=== PATIENT | male | born 1945 | race Hispanic/Latino ===

== ENCOUNTER 2019-11-07 12:28 | Observation (INO) | payer OTHER ==
--- OUTSIDE RECORDS SUMMARY | 2019-11-07 12:33 | XMS REPORT ---
:1945 [facility] Address [address] Ignacio [address] [place] [id number] Care Team Providers Name Role Phone ALICE MILES Unavailable Unavailable Problems This patient has no known problems. Allergies, Adverse Reactions, Alerts This patient has no known allergies or adverse reactions. Medications This patient has no known medications. Results Test Description Test Time Test Comments Text Results Atomic Results Result Comments PET/CT, GALLIUM 68 2019-10-16 09:55:00 FINAL REPORT SKULL BASE TO EXAMINATION: DOTATATE-PET/CT, 10/12/2019 MID-THIGH 10:51 AM CLINICAL HISTORY: Newly diagnosed pancreatic neuroendocrine tumor with hepatic metastases.INDICATION: PET/CT is obtained for initial treatment evaluation.COMPARISON: Outside CT of the abdomen 08/09/2019 TECHNIQUE:Radiopharmaceutical: Ga-68 DotatateAdministered activity: 5.3] mCiRoute of administration: Intravenously via the right handLocalization time: 60 minutesScan extent: Skull base to the proximal thighsAdditional imaging: NoneCPT Code: 92745 FINDINGS:Head and Neck: There is no mariela activity along the cervical chains. Chest: There are no suspicious pulmonary nodules, and no abnormal Tracer activity is seen in the pulmonary parenchyma. No abnormal mariela activity in the mediastinum. Abdomen and Pelvis: Noncontrast CT images of the liver show innumerable small low-attenuation lesions throughout the hepatic parenchyma. There is associated heterogeneous, nodular tracer activity throughout the liver, with SUV measurements reaching 42.9. The primary mass in the distal pancreas also shows intense tracer activity, with SUV measurements reaching 28.7. A nodular focus of intense tracer activity along the dorsal aspect of the mid pancreatic body appears to lie within the pancreatic parenchyma. No abnormal mariela activity is seen in the retroperitoneum, or along iliac or inguinal chains. Musculoskeletal: Numerous foci of osseous tracer activity are seen throughout the axial and proximal appendicular skeleton, many localizing to focal sclerotic lesions on the CT portion of the study. A 0.6 cm sclerotic focus in the T7 vertebral body, for example, has an SUV of 7.6. There is adjacent sclerosis of the left transverse process of the T7 vertebral body, with an SUV of 8.4. Lesions are seen throughout the spine, as well as in the ribs, iliac bones, and proximal femurs. IMPRESSION: Primary neuroendocrine tumor of the distal pancreas. There is a satellite lesion in the mid pancreatic body, and extensive metastatic disease including hepatic and osseous sites. Signed: Camryn Huddleston MDReport Verified Date/Time: 10/16/2019 09:55:55 UE EXAM 2019-09-05 07:43:00 Surgical Pathology Report Case: [id number] Authorizing Provider: Alice Miles Collected: 08/28/2019 1456 Ordering Location: [facility] Endoscopy Received: 08/29/2019 0749 Services Pathologist: Sayda Rodrigues MD Specimens: A) - Polyp, Gastric, gsatric polyp B) - Liver, liver metastasis in formalin, Attn Dr. Stanley C) - Pancreas, Pancreas tail mass in formalin , Attn; Dr. Jaden Vinson. STOMACH, POLYP, POLYPECTOMY- POLYPOID FOVEOLAR HYPERPLASIA WITH FOCAL INTESTINAL METAPLASIA- NEGATIVE FOR HELICOBACTER PYLORI- NEGATIVE FOR DYSPLASIA OR CARCINOMAB. LIVER, EUS-GUIDED BIOPSY OF MASS- METASTATIC WELL DIFFERENTIATED NEUROENDOCRINE TUMOR, GRADE 1 (LOW GRADE) - PROLIFERATION INDEX (ASSESSED BY Ki-67): ~2% C. PANCREAS, TAIL, EUS-GUIDED BIOPSY- NEUROENDOCRINE PROLIFERATION, CONSISTENT WITH WELL DIFFERENTIATED NEUROENDOCRINE TUMOR, GRADE 1 (LOW GRADE) - PROLIFERATION INDEX (ASSESSED BY Ki-67): < 2%- see comment Signing Pathologist Direct Phone Line: [phone] signed by Sayda Rodrigues MD on 09/05/2019 at 7:43 AMPreliminary result electronically signed by Sayda Rodrigues MD on 09/03/2019 at 3:59 PMSpecimen C: With regards to pancreatic tail mass, the biopsy contains very small amount of neuroendocrine cells and the features are consistent with neuroendocrine tumor in the appropriate clinical and radiological setting.[id number], [id number], 22691 X2, 93314 X2, 91573 X2, 19007 [id number] diagnosis: pancreatic massPostoperative diagnosis: pancreatic mass A. Gastric polyp. B. Liver tissue. C. Pancreas tissue Specimen A. Received in formalin labeled with the patient's name, accession number and "gastric polyp" are two fragments of ziegler-pink tissue measuring 0.1 and 0.3 cm in greatest dimension. The specimen is submitted in toto in cassette A1.Specimen B. Received in formalin labeled with the patient's name, accession number and "liver tissue, liver metastasis in formalin, attention Dr. Stanley" is a single elongated red core biopsy that measures 5.0 cm in length x 0.1 cm in diameter. Additionally received in the container are three fragments of ziegler tissue varying in size from 0.1 to 0.3 cm. The specimen is submitted in toto in cassette B1.Specimen C. Received in formalin labeled with the patient's name, accession number and "pancreas tissue, pancreas tail mass in formalin, attention Dr. Stanley" is a 2.0 x 1.0 x 0.3 cm aggregate of irregular to elongated pieces of red tissue. The specimen is submitted in toto in cassettes C1-C2. JG/Giovani Microscopic examination is performed and the findings are incorporated in the diagnostic line. Warthin starry stain is negative for Helicobacter pylori. B, C. Microscopic examination is performed and the findings are incorporated in the diagnostic line. Immunostains for synaptophysin, chromogranin and Ki-67 were performed on block B1, C1 AND C2 with appropriate controls. The tumor is positive for synaptophysin and chromogranin. The proliferation index as assessed by Ki-67 is ~2%. The interpretation of this case included the use of immunohistochemistry or special stains.Control Slides Examined: In-house known positive controls were evaluated along with the test tissue. These control slides run alongside of the patients sample show appropriate staining. Internal positive and negative controls when available are evaluated Immunohistochemistry technical testing was performed at [facility], Pathology Laboratory where it was developed and its performance characteristics were determined. It has not been cleared or approved by the U.S. Food and Drug Administration. The FDA has determined that such clearance or approval is not necessary. The test is used for clinical purposes. It should not be regarded as investigational or for research. This laboratory is certified under the Clinical Laboratory Improvement Amendments of 1988 (CLIA-88) as qualified to perform high complexity clinical laboratory testing.
[2019-11-07] MEDS ORDERED: ONDANSETRON 4 MG/2 ML VIAL IV PRN (13:00)
[2019-11-07] MEDS ORDERED: POLYETHYL GLY 3350 17 GM/DOSE PO PRN (13:00)
[2019-11-07] MEDS ORDERED: ACETAMINOPHEN 325 MG TABLET PO PRN (13:00)
[2019-11-07] MEDS ORDERED: DIPHENHYDRAMINE 25 MG TAB/CAP PO PRN (13:00)
[2019-11-07] MEDS ORDERED: LOPERAMIDE HCL 2 MG CAPSULE PO PRN (13:00)
[2019-11-07] MEDS ORDERED: ONDANSETRON 4 MG (ODT) TAB PO PRN (13:00)
[2019-11-07 13:16] VITALS: BMI 26.8
[2019-11-07 13:32] LABS: Absolute Lymphocytes (CBC) 2.2 K/uL (0.7-4.9); Basophils % 0.6 % (0-1.3); Hematocrit 36.7 % (39.6-49.0); MPV 10.4 fL (7.6-11.3); RBC Red Blood Cell Count 4.03 M/uL (4.33-5.43)
[2019-11-07 13:36] LABS: Protime INR 0.97
[2019-11-07 14:12] LABS: BUN Blood Urea Nitrogen 30 mg/dL (7-18); Bicarbonate 21 mmol/L (21-32); Glucose Level 86 mg/dL (74-106); Magnesium 1.7 mg/dL (1.8-2.4); Phosphorus 3.2 mg/dL (2.5-4.9); Potassium 4.3 mmol/L (3.5-5.1); Sodium Level 139 mmol/L (136-145); Thyroid Stimulating Hormone 0.647 uIU/mL (0.360-3.740)
--- NOTE | 2019-11-07 14:43 | RAD REPORT ---
EXAM DESCRIPTION: RAD - Chest Pa And Lat (2 Views) - 11/07/2019 2:12 pm CLINICAL HISTORY: nausea vomitting COMPARISON: Chest Single View dated 04/09/2017; CHEST PA AND LAT 2 VIEW dated 11/03/2012 TECHNIQUE: Frontal and lateral views of the chest were obtained. FINDINGS: The lungs are clear. Mild prominence of the left hilum is not substantially different fro m comparison imaging. Heart size is normal and central vasculature is within normal limits. No pleur al effusion or pneumothorax seen. No acute bony finding noted. No aortic abnormality. No signific ant change from comparison. IMPRESSION: No acute cardiopulmonary process.
--- NOTE | 2019-11-07 16:22 | RAD REPORT ---
EXAM DESCRIPTION: CTAbdomen Pelvis W Contrast - 11/07/2019 4:11 pm CLINICAL HISTORY: Abdominal pain. r/o obstruction COMPARISON: Abdomen Pelvis W Contrast dated 08/09/2019 TECHNIQUE: Biphasic CT imaging of the abdomen and pelvis was performed with 100 ml non-ionic IV cont rast. All CT scans are performed using dose optimization technique as appropriate and may include automated exposure control or mA/KV adjustment according to patient size. FINDINGS: Tiny pulmonary nodule is identified in the right lung base measuring 4 mm, nonspecific. Innumerable hepatic lesions are present compatible with hepatic metastasis. No intra or extrahepatic biliary tree dilatation is present. The spleen, adrenal glands are normal. Multiple renal cysts are p resent bilaterally without hydronephrosis. Again noted is a large cystic/solid mass in the tail of pancreas measuring 5.5 cm compatible with maryse plasia. No bowel obstruction, free air, free fluid or abscess. Moderate stool is present throughout the colon . Sigmoid diverticulosis coli is present without diverticulitis. Postsurgical clips are present in th e left inguinal region. Nonvisualized appendix. No evidence of significant lymphadenopathy. No aggressive bone lesion identified. IMPRESSION: No bowel obstruction is seen. There is moderate retained stool throughout the colon. Pancreatic tail malignant mass with innumerable hepatic metastases present.
[2019-11-07] MEDS: NACHLORIDE 0.45% 1,000 ML IV SCH (16:30)
[2019-11-07 16:41] LABS: Urine Appearance CLEAR; Urine Bilirubin NEGATIVE (NEG); Urine Blood NEGATIVE (NEG); Urine Color YELLOW; Urine Glucose NEGATIVE (NEG); Urine Protein 1+ (NEG); Urine Specific Gravity 1.015 (1.005-1.030)
[2019-11-07 16:43] LABS: Urine Microscopic Reflex ORDER UMIC
[2019-11-07 17:34] LABS: Urine Amorphous Sediment 3+ /HPF (NONE SEEN); Urine Bacteria <20 /HPF (NONE SEEN); Urine Culture Reflex Order NOT NEEDED; Urine Mucus 3+ /HPF (NONE SEEN); Urine RBC <5 /HPF (NONE SEEN)
[2019-11-08 03:03] VITALS: O2SAT 98
[2019-11-08] MEDS: NACHLORIDE 0.45% 1,000 ML IV SCH (05:45)
[2019-11-08] MEDS ORDERED: MAGNESIUM OXIDE 400 MG TAB PO ONE (07:44)
[2019-11-08 08:53] VITALS: BP 116/66; TEMP 98.5
[2019-11-08] MEDS ORDERED: ENOXAPARIN 40 MG/0.4 ML SQ SCH (09:00)
[2019-11-08] MEDS ORDERED: SODIUM CHLORIDE 0.9% 10ML INJ IV SCH (09:00)
[2019-11-08] MEDS ORDERED: PANTOPRAZOLE 40 MG INJ IV SCH (09:00)
--- NOTE | 2019-11-08 09:23 | EKG ---
Test Date: 2019-11-07 Test Time: 14:22:09 Speeder Tender: YUMIKO MEASUREMENT RESULTS: Intervals: Rate: 75 OR: 184 QRSD: 92 QT: 360 QTc: 402 [place]: P: 52 OR: 184 QRS: 46 T: 65 INTERPRETIVE STATEMENTS: Normal sinus rhythm Normal ECG Compared to ECG 11/03/2012 10:53:34 No significant changes Electronically Signed On 11-08-19 09:22:52 LEAD SCIENTIST by Manoj Gramajo
--- NOTE | 2019-11-08 18:21 | P.DS ---
Admission Date: 11/07/19 Discharge Date: 11/08/19 Disposition: ROUTINE DISCHARGE Brief History of Present Illness: MR. BECKWITH COMES WITH SEVERE NAUSEA AND NOT BEING ABLE TO EAT. HE IMPROVES WITH IV FLUIDS AND PROTONIX. UNFORTUNATELY HE WILL HAVE MORE SYMPTOMS HE HAS METS TO LIVER AND BONES. HE IS STABLE FOR DISCHARGE. I CALLED HIM MEDS FROM OFFICE. PROTONIX AND ZOFRAN. Vital Signs/Physical Exam: Temp Pulse Resp BP Pulse Ox 98.5 F 73 18 116/66 97 11/08/19 08:00 11/08/19 08:00 11/08/19 08:00 11/08/19 08:00 11/08/19 08:00 Laboratory Data at Discharge: WBC 8.5 K/uL (4.3-10.9) 11/07/19 13:20 Hgb 12.5 g/dL (13.6-17.9) L 11/07/19 13:20 Hct 36.7 % (39.6-49.0) L 11/07/19 13:20 Plt Count 232 K/uL (152-406) 11/07/19 13:20 PT 11.5 SECONDS (9.5-12.5) 11/07/19 13:20 INR 0.97 11/07/19 13:20 APTT 32.3 SECONDS (24.3-36.9) 11/07/19 13:20 Sodium 139 mmol/L (136-145) 11/07/19 13:20 Potassium 4.3 mmol/L (3.5-5.1) 11/07/19 13:20 BUN 30 mg/dL (7-18) H 11/07/19 13:20 Creatinine 1.19 mg/dL (0.55-1.3) 11/07/19 13:20 Glucose 86 mg/dL (74-106) 11/07/19 13:20 Phosphorus 3.2 mg/dL (2.5-4.9) 11/07/19 13:20 Magnesium 1.7 mg/dL (1.8-2.4) L 11/07/19 13:20 Home Medications: Atorvastatin Calcium 10 mg PO DAILY 11/07/19 Clopidogrel Bisulfate [Plavix] 75 mg PO DAILY 11/07/19 Losartan Potassium 100 mg PO DAILY 11/07/19 Meclizine HCl 25 mg PO DAILY 11/07/19 Followup: Bob Tadeo MD [Primary Care Provider] -
[2019-11-11 20:05] LABS: HBsAG Nonreactive (Nonreactive)
[2019-11-16 10:30] LABS: Vitamin D 1,25-Dihydroxy Total 28 pg/mL (18-72); Vitamin D,1,25-OH2, D2 <8 pg/mL
== END 2019-11-08 09:15 | disposition home or self-care (01) ==
LOC: 2ND 12:31
PROVIDERS: ADMIT Internal Medicine; ATTEND Internal Medicine
DX: R11.0 Nausea (principal); C78.7 Secondary malignant neoplasm of liver and intrahepatic bile duct; C79.51 Secondary malignant neoplasm of bone; I10 Essential (primary) hypertension; E78.5 Hyperlipidemia, unspecified
CPT/HCPCS: 93005; 87040; 85025; 80048; 36415; 83735; 84100; 85610; 85730; 82652; 84443; 82607; 80074; 74177; 71046; Q9967; C9113; J1650; G0379; G0378 ×3; 81003; 81015

== ENCOUNTER 2020-11-06 12:39 | Emergency (ER) | payer OTHER ==
--- NOTE | 2020-11-06 13:56 | EDPHYS ---
Physician Documentation [facility] Name: Dominguez Watson Age: 75 yrs Sex: Male : 1945 Arrival Date: 11/06/2020 Time: 12:42 Bed 8 Private MD: ED Physician Arpan Jolly HPI: 11/06 13:49 This 75 yrs old Male presents to ER via Wheelchair with complaints of Fall cp Injury, Skin Tear(s). 13:49 The patient has a laceration occurred at home, fall against chair causing skin tear to cp left forearm. Onset: The symptoms/episode began/occurred last night. Associated signs and symptoms: The patient has no apparent associated signs or symptoms. Historical: - Allergies: 13:06 No Known Allergies; iw - PMHx: 13:06 pancreatic cancer; iw - PSHx: 13:06 ayla knee; Appendectomy; iw - Immunization history:: Adult Immunizations. - Social history:: Smoking status: Patient denies any tobacco usage or history of. ROS: 13:51 Eyes: Negative for injury, pain, redness, and discharge. cp 13:51 Constitutional: Negative for body aches, chills, fever. 13:51 Neck: Negative for pain with movement, pain at rest, stiffness. 13:51 Cardiovascular: Negative for chest pain. 13:51 Respiratory: Negative for cough, shortness of breath. 13:51 Abdomen/GI: Negative for abdominal pain. 13:51 Skin: Positive for laceration(s), of the left forearm. 13:51 Neuro: Positive for Negative for altered mental status, loss of consciousness, syncope. 13:51 All other systems are negative. Exam: 13:53 Head/Face: Normocephalic, atraumatic. cp 13:53 Constitutional: The patient appears in no acute distress, alert, awake, non-diaphoretic, non-toxic, well developed, frail. 13:53 Neck: ROM/movement: is normal, is supple, without pain, no range of motions limitations. 13:53 Chest/axilla: Inspection: normal, Palpation: is normal, no crepitus, no tenderness. 13:53 Cardiovascular: Rate: normal. 13:53 Respiratory: the patient does not display signs of respiratory distress, Respirations: normal, no use of accessory muscles, no retractions, labored breathing, is not present. 13:53 Abdomen/GI: Exam negative for discomfort, distension, guarding, Inspection: abdomen appears normal. 13:53 Back: pain, is absent, ROM is normal. 13:53 Musculoskeletal/extremity: no bony deformity and/or tenderness to palpation noted left forearm. 13:53 Skin: injury, laceration(s), of the left forearm, that can be described as clean, no foreign body, irregular, without bleeding. Vital Signs: 13:02 BP 118 / 90; Pulse 80; Resp 16; Temp 98.0; Pulse Ox 100% on R/A; Weight 58.06 kg; iw 14:53 BP 123 / 79; Pulse 74; Resp 16; Pulse Ox 100% ; bp MDM: 13:44 Patient medically screened. cp 13:55 Differential diagnosis: superficial laceration, fracture, contusion. Data reviewed: cp vital signs, nurses notes, and as a result, I will discharge patient. 11/06 13:49 Order name: Wound dressing: please clean and dress wound with bacitracin; Complete cp Time: 14:49 Administered Medications: 14:10 Drug: Tetanus-Diphtheria Toxoid Adult 0.5 ml {Library Director: [employer]. Exp: bp 01/10/2022. Lot #: [id number]. } Route: IM; Site: left deltoid; 14:49 Follow up: Response: No adverse reaction bp Disposition: 17:00 Co-signature as Attending Physician, Arpan Jolly MD I agree with the assessment and kdr plan of care. Disposition: 11/06/20 13:56 Discharged to Home. Impression: Laceration without foreign body of left forearm. - Condition is Stable. - Discharge Instructions: Skin Tear Care. - Prescriptions for Bactroban 2 % Topical Ointment - Apply to affected area 1 application by TOPICAL route every 12 hours; 30 gram. - Medication Reconciliation Form, Thank You Letter, Antibiotic Education, Prescription Opioid Use form. - Follow up: Private Physician; When: 1 - 2 days; Reason: Worsening of condition. - Problem is new. - Symptoms have improved. Signatures: Arpan Jolly MD MD [facility] Dory Starks RN RN iw Kenrick Cannon PA PA cp Peltier, Brian, RN RN bp Corrections: (The following items were deleted from the chart) 14:57 13:56 11/06/2020 13:56 Discharged to Home. Impression: Laceration without foreign body bp of left forearm. Condition is Stable. Forms are Medication Reconciliation Form, Thank You Letter, Antibiotic Education, Prescription Opioid Use. Follow up: Private Physician; When: 1 - 2 days; Reason: Worsening of condition. Problem is new. Symptoms have improved. cp
--- NOTE | 2020-11-06 13:56 | ER ---
Nurse's Notes [facility] Name: Dominguez Watson Age: 75 yrs Sex: Male : 1945 Arrival Date: 11/06/2020 Time: 12:42 Bed 8 Private MD: Diagnosis: Laceration without foreign body of left forearm Presentation: 11/06 13:02 Chief complaint: Patient states: fell yesterday at home, hit his left arm against a chair and now has a large skin tear to forearm, states he gets weak due to his pancreatic cancer, is worried about infection so he came to ER. Coronavirus screen: At this time, the client does not indicate any symptoms associated with coronavirus-19. Ebola Screen: Patient negative for fever greater than or equal to 101.5 degrees Fahrenheit, and additional compatible Ebola Virus Disease symptoms Patient denies exposure to infectious person. Patient denies travel to an Ebola-affected area in the 21 days before illness onset. No symptoms or risks identified at this time. Initial Sepsis Screen: Does the patient meet any 2 criteria? No. Patient's initial sepsis screen is negative. Does the patient have a suspected source of infection? No. Patient's initial sepsis screen is negative. Risk Assessment: Do you want to hurt yourself or someone else? Patient reports no desire to harm self or others. Onset of symptoms was November 05, 2020. 13:02 Method Of Arrival: Wheelchair iw 13:02 Acuity: JUANY 4 iw Triage Assessment: 13:10 General: Appears in no apparent distress. uncomfortable, Behavior is cooperative, bp appropriate for age, anxious. Pain: Complains of pain in left arm. EENT: No deficits noted. Neuro: Level of Consciousness is awake, alert, obeys commands, Oriented to Appropriate for age. Cardiovascular: No deficits noted. Respiratory: No deficits noted. GI: No signs and/or symptoms were reported involving the gastrointestinal system. : No signs and/or symptoms were reported regarding the genitourinary system. Derm: Wound noted left arm Wound is SKIN TEAR. Musculoskeletal: No deficits noted. Injury Description: Abrasion Puncture sustained to left arm is superficial. Historical: - Allergies: 13:06 No Known Allergies; iw - PMHx: 13:06 pancreatic cancer; iw - PSHx: 13:06 ayla knee; Appendectomy; iw - Immunization history:: Adult Immunizations. - Social history:: Smoking status: Patient denies any tobacco usage or history of. Screenin:53 Abuse screen: Denies threats or abuse. Denies injuries from another. Nutritional bp screening: No deficits noted. Tuberculosis screening: No symptoms or risk factors identified. Fall Risk Fall in past 12 months (25 points). No secondary diagnosis (0 pts). IV access (20 points). Ambulatory Aid- None/Bed Rest/Nurse Assist (0 pts). Gait- Normal/Bed Rest/Wheelchair (0 pts) Mental Status- Oriented to own ability (0 pts). Total [place] Fall Scale indicates High Risk Score (45 or more points). Fall prevention measures have been instituted. Side Rails Up X 2 Placed Close to Nursing Station Frequent Obs/Assessments Occuring As available patient and family educated on Fall Prevention Program and Strategies. Assessment: 13:10 General: SEE TRIAGE NOTE. bp 14:53 Reassessment: No changes from previously documented assessment. PT D/C HOME VIA W'/C bp WITH FAMILY, DX WITH SKIN TEAR S/P FALL. Vital Signs: 13:02 BP 118 / 90; Pulse 80; Resp 16; Temp 98.0; Pulse Ox 100% on R/A; Weight 58.06 kg; iw 14:53 BP 123 / 79; Pulse 74; Resp 16; Pulse Ox 100% ; bp ED Course: 12:42 Patient arrived in ED. ag5 13:04 Triage completed. iw 13:06 Arm band placed on. iw 13:32 Mir Palomares, ZAHIRA is Primary Nurse. bp 13:42 Kenrick Cannon PA is PHCP. cp 13:42 Arpan Jolly MD is Attending Physician. cp 14:53 Patient has correct armband on for positive identification. Bed in low position. Call bp light in reach. Side rails up X2. 14:53 No provider procedures requiring assistance completed. Patient did not have IV access bp during this emergency room visit. Wound care: to SKIN TEAR located on left arm was cleaned with dressed with Patient tolerated well. Administered Medications: 14:10 Drug: Tetanus-Diphtheria Toxoid Adult 0.5 ml {Assistant Food Service Director: [employer]. Exp: bp 01/10/2022. Lot #: [id number]. } Route: IM; Site: left deltoid; 14:49 Follow up: Response: No adverse reaction bp Outcome: 13:56 Discharge ordered by MD. cp 14:53 Discharged to home via wheelchair, with family. bp 14:53 Condition: stable 14:53 Discharge instructions given to patient, Instructed on discharge instructions, follow up and referral plans. medication usage, Demonstrated understanding of instructions, follow-up care, medications, wound care, Prescriptions given X 1. 14:57 Patient left the ED. bp Signatures: Dory Starks RN RN Kenrick Maldonado PA PA cp Peltier, Brian, RN RN Bryanna Osborn ag5
[2020-11-06] MEDS ORDERED: TETANUS & DIPHTHERIA TOX,ADULT 0.5 ML VIAL ONE ×2 (14:37→15:03)
[2020-11-06 15:01] VITALS: TEMP 98; O2SAT 100
[2020-11-06 15:07] VITALS: BP 123/79
== END 2020-11-06 14:57 | disposition home or self-care (01) ==
LOC: ER 12:39
DX: S51.812A Laceration without foreign body of left forearm, initial encounter (principal); W18.39XA Other fall on same level, initial encounter; Y93.9 Activity, unspecified; Y92.019 Unspecified place in single-family (private) house as the place of occurrence of the external cause; Z23 Encounter for immunization
CPT/HCPCS: 90471; 90714; 99283

== ENCOUNTER 2020-11-11 11:40 | Emergency (ER) | payer OTHER ==
[2020-11-11 17:40] LABS: Absolute Lymphocytes (CBC) 1.5 K/uL (0.7-4.9); Basophils % 0.5 % (0-1.3); Hematocrit 38.5 % (39.6-49.0); Lymphocytes % 25.3 % (15.3-44.8); RBC Red Blood Cell Count 4.29 M/uL (4.33-5.43)
[2020-11-11 17:55] LABS: BUN Blood Urea Nitrogen 25 mg/dL (7-18); Bicarbonate 26 mmol/L (21-32); Glucose Level 105 mg/dL (74-106); Potassium 4.4 mmol/L (3.5-5.1); Sodium Level 141 mmol/L (136-145)
[2020-11-11] MEDS ORDERED: ACETAMINOPHEN 500 MG TAB ONE (18:17)
--- NOTE | 2020-11-11 19:59 | EDPHYS ---
Physician Documentation [facility] Name: Dominguez Watson Age: 75 yrs Sex: Male : 1945 Arrival Date: 11/11/2020 Time: 11:43 Bed 24 Private MD: ED Physician Kenrick Perez HPI: 11/11 16:25 This 75 yrs old Male presents to ER via Wheelchair with complaints of Fall cp Injury, Arm Injury. 16:25 Details of fall: The patient fell from an upright position, while walking. cp 16:25 Onset: The symptoms/episode began/occurred yesterday. Associated injuries: The patient cp sustained injury to the chest, specifically the left lateral posterior chest, pain with breathing, pain with movement, tenderness, left knee, painful injury. 16:25 Patient denies LOC. Reports tripping and losing balance prior to fall. cp Historical: - Allergies: 12:43 No Known Allergies; jd3 - PMHx: 12:43 pancreatic cancer; jd3 - PSHx: 12:43 ayla knee; Appendectomy; jd3 - Immunization history:: Adult Immunizations up to date. - Social history:: Smoking status: unknown. ROS: 16:30 Constitutional: Negative for body aches, chills, fever, poor PO intake. cp 16:30 Eyes: Negative for injury, pain, redness, and discharge. cp 16:30 ENT: Negative for ear pain, sore throat, difficulty swallowing, difficulty handling secretions. 16:30 Cardiovascular: Positive for chest pain, with movement, of the left lateral posterior chest, Negative for edema, palpitations. 16:30 Respiratory: Negative for cough, shortness of breath, wheezing. 16:30 Abdomen/GI: Negative for abdominal pain, nausea, vomiting, and diarrhea, constipation, black/tarry stool, rectal bleeding. 16:30 Back: Positive for pain at rest, pain with movement, of the left subscapular area, left low back and left mid back. 16:30 MS/extremity: Positive for pain, of the left hip, Negative for decreased range of motion, deformity, paresthesias. 16:30 Skin: Negative for cellulitis, rash. 16:30 Neuro: Negative for altered mental status, headache, loss of consciousness, syncope. 16:30 All other systems are negative. Exam: 16:40 Constitutional: The patient appears in no acute distress, alert, awake, cp non-diaphoretic, non-toxic, well developed, frail. 16:40 Head/Face: Normocephalic, atraumatic. cp 16:40 Eyes: Periorbital structures: appear normal, Conjunctiva: normal, no exudate, no injection, Sclera: no appreciated abnormality, Lids and lashes: appear normal, bilaterally. 16:40 ENT: External ear(s): are unremarkable, Nose: is normal, Mouth: Lips: moist, Oral mucosa: moist, Posterior pharynx: Airway: no evidence of obstruction, patent. 16:40 Neck: C-spine: vertebral tenderness, is not appreciated, crepitus, is not appreciated, ROM/movement: pain, is not appreciated, limited range of motion, is not appreciated. 16:40 Chest/axilla: Inspection: normal, Palpation: crepitus, is not appreciated, tenderness, that is moderate, of the posterior lateral lower left chest wall. 16:40 Cardiovascular: Rate: normal, Rhythm: regular, Edema: is not appreciated, JVD: is not appreciated. 16:40 Respiratory: the patient does not display signs of respiratory distress, Respirations: normal, no use of accessory muscles, no retractions, labored breathing, is not present, Breath sounds: are clear throughout, no decreased breath sounds, no stridor, no wheezing. 16:40 Abdomen/GI: Inspection: abdomen appears normal, Bowel sounds: active, all quadrants, Palpation: soft, in all quadrants, nontender, in all quadrants, rebound tenderness, is not appreciated, voluntary guarding, is not appreciated, involuntary guarding, is not appreciated. 16:40 Back: pain, that is moderate, of the left mid back, ROM is painful, with all movement, vertebral tenderness, is not appreciated. 16:40 Skin: cellulitis, is not appreciated, no rash present. 16:40 Neuro: Orientation: to person, place \T\ time. Mentation: is normal, Motor: moves all fours, strength is normal, Sensation: is normal. Vital Signs: 12:41 BP 108 / 77; Pulse 97; Resp 17 S; Temp 97.7(TE); Pulse Ox 99% on R/A; Pain 7/10; jd3 17:40 BP 128 / 96; Pulse 76; Resp 17; Temp 97.5(TE); Pulse Ox 100% on R/A; mh5 MDM: 16:06 Patient medically screened. cp 17:00 Differential diagnosis: closed head injury, contusion, fracture, multiple trauma. cp 19:57 Data reviewed: vital signs, nurses notes, lab test result(s), radiologic studies, CT cp scan, plain films. 19:57 Counseling: I had a detailed discussion with the patient and/or guardian regarding: the cp historical points, exam findings, and any diagnostic results supporting the discharge/admit diagnosis, lab results, radiology results, to return to the emergency department if symptoms worsen or persist or if there are any questions or concerns that arise at home. Response to treatment: pain improved, and as a result, I will discharge patient. ED course: VSS. Discussed results of trauma CT scan that was negative for acute trauma but showed metastatic disease. Will discharge to home for continued monitoring. 02 16:29 Order name: Basic Metabolic Panel 11/11 16:29 Order name: CBC with Diff 11/11 16:29 Order name: PT-INR; Complete Time: 19:04 02 16:29 Order name: Basic Metabolic Panel; Complete Time: 17:58 EDMS 02 17:58 Interpretation: Normal except: CL 108; BUN 25. 02 16:29 Order name: CBC with Automated Diff; Complete Time: 17:58 EDMS 0216 17:59 Interpretation: Normal except: RBC 4.29; HGB 12.7; HCT 38.5; RDW 15.3. 02 16:29 Order name: Labs collected and sent; Complete Time: 17:28 11/11 16:31 Order name: CT Traumagram (Head C Spine CAP W Con) 11/11 16:31 Order name: XRAY Knee LEFT 3 view cp Administered Medications: 18:08 Drug: Tylenol 1000 mg Route: PO; iw 20:01 Drug: UltRAM 50 mg Route: PO; sg Disposition: 11/11/20 19:58 Discharged to Home. Impression: Fall on same level from slipping, tripping and stumbling, Other chest pain - left lateral lower posterior chest. - Condition is Stable. - Discharge Instructions: Rib Contusion, Metastatic Cancer. - Medication Reconciliation Form, Thank You Letter, Antibiotic Education, Prescription Opioid Use form. - Follow up: Private Physician; When: 1 - 2 days; Reason: Recheck today's complaints. - Problem is new. - Symptoms have improved. Addendum: 11/13/2020 06:58 Co-signature as Attending Physician, Kenrick Perez MD I agree with the assessment and c mercedes plan of care. Signatures: Dispatcher [employer] EDOsman Aguilar RN RN Kenrick Perez MD MD cha Mickail, Joel, PA PA jmm Williams, Irene, RN RN iw Page, Corey, PA PA cp Davies, Jonathon, RN RN jd3 Corrections: (The following items were deleted from the chart) 11/11 16:26 16:26 This 75 yrs old Male presents to ER via Wheelchair with complaints of cp Fall Injury, Arm Injury. cp 20:23 19:58 11/11/2020 19:58 Discharged to Home. Impression: Fall on same level from slipping, tripping and stumbling; Other chest pain - left lateral lower posterior chest. Condition is Stable. Forms are Medication Reconciliation Form, Thank You Letter, Antibiotic Education, Prescription Opioid Use. Follow up: Private Physician; When: 1 - 2 days; Reason: Recheck today's complaints. Problem is new. Symptoms have improved. cp 11/12 20:05 11/11 16:25 Associated injuries: The patient sustained injury to the chest, cp specifically the left lateral posterior chest, pain with breathing, pain with movement, tenderness, cp
--- NOTE | 2020-11-11 19:59 | ER ---
Nurse's Notes [facility] Name: Dominguez Watson Age: 75 yrs Sex: Male : 1945 Arrival Date: 11/11/2020 Time: 11:43 Bed 24 Private MD: Diagnosis: Fall on same level from slipping, tripping and stumbling;Other chest pain-left lateral lower posterior chest Presentation: 11/11 12:39 Chief complaint: Patient states: "fall yesterday and landed on my left side.". jd3 Coronavirus screen: At this time, the client does not indicate any symptoms associated with coronavirus-19. Ebola Screen: Patient negative for fever greater than or equal to 101.5 degrees Fahrenheit, and additional compatible Ebola Virus Disease symptoms. Initial Sepsis Screen: Does the patient meet any 2 criteria? No. Patient's initial sepsis screen is negative. Does the patient have a suspected source of infection? No. Patient's initial sepsis screen is negative. Risk Assessment: Do you want to hurt yourself or someone else? Patient reports no desire to harm self or others. Onset of symptoms was November 10, 2020. 12:39 Method Of Arrival: Wheelchair jd3 12:39 Acuity: JUANY 3 jd3 Historical: - Allergies: 12:43 No Known Allergies; jd3 - PMHx: 12:43 pancreatic cancer; jd3 - PSHx: 12:43 ayla knee; Appendectomy; jd3 - Immunization history:: Adult Immunizations up to date. - Social history:: Smoking status: unknown. Screenin:13 Abuse screen: Denies threats or abuse. Denies injuries from another. Nutritional iw screening: No deficits noted. Tuberculosis screening: No symptoms or risk factors identified. Fall Risk None identified. Assessment: 17:40 General: Appears in no apparent distress. Behavior is calm, cooperative. Pain: iw Complains of pain in left hip and left mid back and left low back. Neuro: Level of Consciousness is awake, alert, obeys commands, Oriented to person, place, time, situation. Cardiovascular: Patient's skin is warm and dry. Derm: Skin is intact, is healthy with good turgor. Musculoskeletal: Range of motion: intact in all extremities. 19:00 Reassessment: Patient appears in no apparent distress at this time. Patient and/or iw family updated on plan of care and expected duration. Pain level reassessed. Patient is alert, oriented x 3, equal unlabored respirations, skin warm/dry/pink. Patient states feeling better. Vital Signs: 12:41 BP 108 / 77; Pulse 97; Resp 17 S; Temp 97.7(TE); Pulse Ox 99% on R/A; Pain 7/10; jd3 17:40 BP 128 / 96; Pulse 76; Resp 17; Temp 97.5(TE); Pulse Ox 100% on R/A; mh5 ED Course: 11:43 Patient arrived in ED. rg4 12:40 Triage completed. jd3 12:41 Arm band placed on. jd3 16:03 Dory Starks, RN is Primary Nurse. iw 16:05 Kenrick Cannon PA is PHCP. cp 16:05 Kenrick Perez MD is Attending Physician. 17:28 Basic Metabolic Panel Sent. 5 17:28 CBC with Diff Sent. 5 17:29 Patient has correct armband on for positive identification. Bed in low position. Call [facility] light in reach. Side rails up X 1. Warm blanket given. Pulse ox on. NIBP on. 17:29 CBC with Automated Diff Sent. [facility] 17:29 Basic Metabolic Panel Sent. [facility] 17:29 PT-INR Sent. [facility] 17:29 Initial lab(s) drawn, by me, sent to lab. Inserted saline lock: 20 gauge in right 5 antecubital area, using aseptic technique. Blood collected. 17:33 XRAY Knee LEFT 3 view In Process Unspecified. EDMS 18:17 CT Traumagram (Head C Spine CAP W Con) In Process Unspecified. EDMS 20:22 No provider procedures requiring assistance completed. IV discontinued, intact, iw bleeding controlled, No redness/swelling at site. Pressure dressing applied. Administered Medications: 18:08 Drug: Tylenol 1000 mg Route: PO; iw 20:01 Drug: UltRAM 50 mg Route: PO; sg Outcome: 19:58 Discharge ordered by . cp 20:23 Discharged to home via wheelchair, with family. iw 20:23 Condition: good 20:23 Discharge instructions given to patient, Instructed on discharge instructions, follow up and referral plans. Demonstrated understanding of instructions, follow-up care, medications. 20:23 Patient left the ED. iw Signatures: Dispatcher [employer] EDOsman Aguilar RN RN Dory French RN RN Kenrick Maldonado PA PA cp Garcia, Rubi rg4 Mayra Diallo [facility] Vamsi Suarez RN RN jd3
[2020-11-11] MEDS ORDERED: TRAMADOL HCL 50 MG TAB ONE (20:14)
--- NOTE | 2020-11-12 07:13 | RAD REPORT ---
EXAM DESCRIPTION: RAD - Knee Left 3 View - 11/11/2020 10:49 pm CLINICAL HISTORY: Left knee pain status post injury FINDINGS: No fracture or dislocation is seen. The left knee prosthesis in good position without evidence of loosening
--- NOTE | 2020-11-12 12:37 | RAD REPORT ---
EXAM DESCRIPTION: CT Trauma Head, C-Spine Chest, Abdomen & Pelvis 11/13/2020 CLINICAL HISTORY: Fall with head and neck pain. Neck injury. Abdominal pain. COMPARISON: None. TECHNIQUE: Computed axial tomography of the head, c-spine, chest, abdomen and pelvis was obtained. 100 mL Isovue 300 administered intravenously. This exam was performed according to our departmental dose-optimization program, which includes automated exposure control, adjustment of the mA and/or kV according to patient size and/or use of iterative reconstruction technique. FINDINGS: An intracranial bleed is not seen. The ventricles are normal in caliber. No extra axial fluid collection is noted. Fluid within the sinuses/mastoids is not seen. A cervical fracture is not visualized. No dislocation. Mediastinal hematoma is not seen. No pulmonary contusion. A pleural effusion is not present. No pericardial effusion. On the arterial phase there appear to be many hepatic nodules. These are not clearly seen on the venous phase. The spleen and adrenals appear unremarkable. Bilateral renal cysts are present. A 5.8 cm mostly solid mass is present within the pancreatic tail. There is no evidence of diverticulitis. The prostate gland is mildly enlarged. Post surgical changes of a left inguinal hernia repair are seen. Sclerotic lesions are scattered throughout the cervical, thoracic and lumbar spine as well as the sacrum and bones. Areas of sclerosis within the femora are present. There are sclerotic lesions within the sternum. IMPRESSION: 1. No acute intracranial abnormality is seen. 2. A cervical fracture is not visualized. If the patient continues to have symptoms to suggest intracranial/spinal cord pathology MRI would be recommended. 3. No acute traumatic injury is seen involving the chest, abdomen or pelvis. 4. A 5.8 cm pancreatic mass likely neoplasm. On the arterial phase nodules are suspected within the liver suspicious for metastases. In addition there are many sclerotic bony lesions likely additional metastases.
== END 2020-11-11 20:23 | disposition home or self-care (01) ==
LOC: ER 11:40
DX: R07.89 Other chest pain (principal); M25.562 Pain in left knee; W01.0XXA Fall on same level from slipping, tripping and stumbling without subsequent striking against object, initial encounter; Z96.652 Presence of left artificial knee joint; C25.9 Malignant neoplasm of pancreas, unspecified
CPT/HCPCS: 85025; 80048; 36415; 85610; 70450; 72125; 71260; 74177; 73562; 99284; Q9967

== ENCOUNTER 2021-07-07 16:21 | Observation (INO) | payer OTHER ==
[2021-07-07] MEDS ORDERED: ONDANSETRON 4 MG/2 ML VIAL IV PRN (20:00)
[2021-07-07] MEDS ORDERED: DIPHENHYDRAMINE 25 MG TAB/CAP PO PRN (20:00)
[2021-07-07] MEDS ORDERED: POLYETHYL GLY 3350 17 GM/DOSE PO PRN (20:00)
[2021-07-07] MEDS ORDERED: ENOXAPARIN 40 MG/0.4 ML SQ ONE (20:00)
[2021-07-07] MEDS ORDERED: SODIUM CHLORIDE 0.9% 10ML INJ IV PRN (20:00)
[2021-07-07] MEDS ORDERED: LOPERAMIDE HCL 2 MG CAPSULE PO PRN (20:00)
--- NOTE | 2021-07-07 20:31 | RAD REPORT ---
EXAM DESCRIPTION: RAD - Abdomen W Erect - 07/07/2021 8:21 pm CLINICAL HISTORY: abdominal pain COMPARISON: ABDOMEN W ERECT dated 07/07/2012 FINDINGS: Large colonic stool burden. No bowel obstruction is identified. Lung bases are clear. No a ir-fluid levels or free air. Small radiopaque foreign body in the epigastrium may be external to the patient. No abnormal calcifications. IMPRESSION: Large colonic stool burden. No bowel obstruction or free air.
--- NOTE | 2021-07-07 20:31 | RAD REPORT ---
EXAM DESCRIPTION: RAD - Chest Pa And Lat (2 Views) - 07/07/2021 8:21 pm CLINICAL HISTORY: abd pain COMPARISON: Chest Pa And Lat (2 Views) dated 11/07/2019; Chest Single View dated 04/09/2017; CHEST PA AND LAT 2 VIEW dated 11/03/2012; CHEST SINGLE VIEW dated 07/15/2006 FINDINGS: Lines: None. Lungs: No evidence of edema or pneumonia. Pleural: No significant pleural effusions or pneumothorax. Cardiac: The heart size is within normal limits. Bones: No acute fractures. Other: IMPRESSION: No acute cardiopulmonary disease.
[2021-07-07 20:49] VITALS: BMI 19.1
[2021-07-07 20:49] LABS: Absolute Lymphocytes (CBC) 1.9 K/uL (0.7-4.9); Basophils % 0.6 % (0-1.3); Hematocrit 39.2 % (39.6-49.0); Lymphocytes % 32.1 % (15.3-44.8); MPV 8.6 fL (7.6-11.3); RBC Red Blood Cell Count 4.45 M/uL (4.33-5.43)
[2021-07-07 20:53] LABS: Protime INR 0.99
[2021-07-07] MEDS: NACHLORIDE 0.45% 1,000 ML IV SCH (21:00)
[2021-07-07] MEDS: ACETAMINOPHEN 325 MG TABLET PO PRN (21:25)
[2021-07-07 21:35] LABS: ALT/SGPT 90 U/L (12-78); AST/SGOT 24 U/L (15-37); Albumin 3.2 g/dL (3.4-5.0); Alkaline Phosphatase 98 U/L (45-117); BUN Blood Urea Nitrogen 23 mg/dL (7-18); Bicarbonate 27 mmol/L (21-32); Bilirubin Direct 0.1 mg/dL (0-0.2); Bilirubin Total 0.3 mg/dL (0.2-1.0); Glucose Level 95 mg/dL (74-106); Magnesium 2.1 mg/dL (1.8-2.4); Phosphorus 3.4 mg/dL (2.5-4.9); Potassium 4.4 mmol/L (3.5-5.1); Protein, Total 6.7 g/dL (6.4-8.2); Sodium Level 139 mmol/L (136-145); Thyroid Stimulating Hormone 0.795 uIU/mL (0.360-3.740)
[2021-07-08 02:25] LABS: Urine Appearance CLEAR (Clear); Urine Blood NEGATIVE (Negative); Urine Color YELLOW (Yellow); Urine Glucose NEGATIVE (Negative); Urine Protein 2+ (Negative); Urine pH 5.5 (5.0-7.0)
[2021-07-08 02:39] LABS: Urine Bilirubin NEGATIVE (Negative); Urine Microscopic Reflex ORDER UMIC
[2021-07-08 03:54] LABS: Basophils % 0.6 % (0-1.3); Hematocrit 34.1 % (39.6-49.0); Lymphocytes % 37.4 % (15.3-44.8); RBC Red Blood Cell Count 3.87 M/uL (4.33-5.43)
[2021-07-08 04:04] LABS: BUN Blood Urea Nitrogen 21 mg/dL (7-18); Bicarbonate 26 mmol/L (21-32); Glucose Level 71 mg/dL (74-106); Potassium 4.4 mmol/L (3.5-5.1); Sodium Level 138 mmol/L (136-145)
[2021-07-08 04:37] LABS: Urine Bacteria <20 /HPF (NONE SEEN); Urine Coarse Granular Casts 0-5 /LPF (NONE SEEN); Urine RBC <5 /HPF (NONE SEEN)
[2021-07-08] MEDS ORDERED: FLEET ENEMA ADULT PR ONE (06:18)
[2021-07-08] MEDS ORDERED: PANTOPRAZOLE 40MG TABLET PO SCH (06:30)
[2021-07-08] MEDS ORDERED: ENOXAPARIN 40 MG/0.4 ML SQ SCH (09:00)
[2021-07-08 11:55] VITALS: BP 134/73; TEMP 98
[2021-07-08] MEDS: NACHLORIDE 0.45% 1,000 ML IV SCH (12:40)
[2021-07-08] MEDS: ACETAMINOPHEN 325 MG TABLET PO PRN (12:45)
--- NOTE | 2021-07-08 16:37 | EKG ---
Test Date: 2021-07-07 Test Time: 21:35:07 Trophy Assembler: RT-O MEASUREMENT RESULTS: Intervals: Rate: 78 NM: 194 QRSD: 94 QT: 378 QTc: 430 [place]: P: 49 NM: 194 QRS: 39 T: 69 INTERPRETIVE STATEMENTS: Normal sinus rhythm Normal ECG Compared to ECG 11/07/2019 14:22:09 No significant changes Electronically Signed On 07-08-21 16:35:41 CDT by Nuno Tejeda
--- NOTE | 2021-07-08 21:10 | P.DS ---
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 HE HAS LOST SIGNIFCANT AMOUNT OF WEIGHT. HE HAS NOT ATE AND DRANK FOR A FEW DAYS. I FIND THAT HE IS SEVERELY CONSTIPATED BUT STILL HAS SOME BM DAILY. HE IS ABLE TO EAT NOW AFTER IV HYDRATION. EH IS STILL NOT READY FOR HOSPICE. HE WILL FU WITH ONCOLOGIST AND MY OFFICE. Vital Signs/Physical Exam: Temp Pulse Resp BP Pulse Ox 98.0 F 80 16 134/73 96 07/08/21 11:54 07/08/21 11:54 07/08/21 11:54 07/08/21 11:54 07/08/21 11:54 Laboratory Data at Discharge: WBC 5.50 K/uL (4.3-10.9) 07/08/21 03:30 Hgb 11.4 g/dL (13.6-17.9) L 07/08/21 03:30 Hct 34.1 % (39.6-49.0) L 07/08/21 03:30 Plt Count 214 K/uL (152-406) 07/08/21 03:30 PT 11.4 SECONDS (9.5-12.5) 07/07/21 20:33 INR 0.99 07/07/21 20:33 APTT 35.3 SECONDS (24.3-36.9) 07/07/21 20:33 Sodium 138 mmol/L (136-145) 07/08/21 03:30 Potassium 4.4 mmol/L (3.5-5.1) 07/08/21 03:30 BUN 21 mg/dL (7-18) H 07/08/21 03:30 Creatinine 0.74 mg/dL (0.55-1.3) 07/08/21 03:30 Glucose 71 mg/dL (74-106) L 07/08/21 03:30 Phosphorus 3.4 mg/dL (2.5-4.9) 07/07/21 20:33 Magnesium 2.0 mg/dL (1.8-2.4) 07/08/21 03:30 Total Bilirubin 0.3 mg/dL (0.2-1.0) 07/07/21 20:33 AST 24 U/L (15-37) 07/07/21 20:33 ALT 90 U/L (12-78) H 07/07/21 20:33 Alkaline Phosphatase 98 U/L (45-117) 07/07/21 20:33 Home Medications: Atorvastatin Calcium 10 mg PO DAILY 11/07/19 Clopidogrel Bisulfate [Plavix] 75 mg PO DAILY 11/07/19 Losartan Potassium 100 mg PO DAILY 11/07/19 Meclizine HCl 25 mg PO DAILY 11/07/19 Followup: Bob Tadeo MD [ACTIVE - CAN ADMIT] - (Call to schedule follow up appointment)
--- OUTSIDE RECORDS SUMMARY | 2021-08-06 16:08 | XMS REPORT | Continuity of Care Document ---
:1945 Author Organization [facility] t Address [address] [place] [address] Care Team Providers Name Role Phone Nathalia PITTMAN Attending Clinician NATHALIA Attending Clinician Unavailable Marcel PITTMAN Attending Clinician TRACIE MOONEY Attending Clinician Unavailable TRACIE MOONEY Admitting Clinician Unavailable Payers Payer Name Policy Type Policy Number Effective Date Expiration Date S ource MEDICARE A B [id number] 2008 00:00:00 [employer] INDEMNITY [id number] 2013 NON CONTR 00:00:00 Problems Condition Condition Condition Status Onset Resolution Last Treating Co mments Source Name Details Category Date Date Treatment Clinician Date Skin rash Skin rash Disease Active [facility] 6-28 College 00:00: of 00 Medicin e Liver Liver Disease Active 0 [facility] metastases metastases 2-05 Co llege (HCCode) (HCCode) 00:00: of 00 Medicin e Bone Bone Disease Active 2020-0 [facility] metastases metastases 2-05 Co llege (HCCode) (HCCode) 00:00: of 00 Medicin e Primary Primary Disease Active 2018-09 [facility] pancreatic pancreatic 2-19 Co llege neuroendoc neuroendoc 00:00: of rine tumor rine tumor 00 Me dicin e Allergies, Adverse Reactions, Alerts Allergy Allergy Status Severity Reaction(s) Onset Inactive Treating Comm ents Source Name Type Date Date Clinician NO KNOWN Allergy Active [facility] Social History Social Habit Start Date Stop Date Quantity Comments Source History SDOH [facility] Colle ge Alcohol Std Drinks of Med icine History [facility] Vic ge Alcohol Binge of Medicine Alcohol intake 2020-09-08 2020-09-08 Lifetime [facility] Col lege 00:00:00 00:00:00 non-drinker of Medicine (finding) Tobacco use and 2019-08-27 2019-08-27 Never used [facility] Co llege exposure 00:00:00 00:00:00 of Medicine History [facility] 2019-08-27 2019-08-27 1 [facility] Vic ge Alcohol Frequency 00:00:00 00:00:00 of Medi cine Sex [birth year] [facility] Co llege 00:00:00 00:00:00 of Medicine Smoking Status Start Date Stop Date Source Never smoker [facility] o f Medicine Medications Ordered Filled Start Stop Current Ordering Indication Dosage Frequency Signature Comments Components Source Medication Medication Date Date Medication? Clinician (SIG) Name Name renny 2019-09 Yes [id number] Apply to [facility] 14 [facility] ([employer]!) 00:00: affected of 0.1 % 00 areas Medicin ointment 2x/day x 3 e weeks as needed, then weekends only x 2 weeks. Can use 1-2 week(s) max on face (avoid eyelids), groin, armpits. triamcinolo 2019-09 Yes [id number] Apply to [facility] 2-14 [facility] ([employer]!) 00:00: affected of 0.1 % 00 areas Medicin ointment 2x/day x 3 e weeks as needed, then weekends only x 2 weeks. Can use 1-2 week(s) max on face (avoid eyelids), groin, armpits. triamcinolo 2019- Yes .1% Apply 0.1 [facility] 0-16 [employer] ([employer]) 00:00: topically of 0.1 % cream 00 as needed. Me dicin e triamcinolo 2019-09 Yes .1% Apply 0.1 [facility] ne 0-16 [employer] ([employer]) 00:00: topically of 0.1 % cream 00 as needed. Me dicin e metoclopram 0 Yes 5mg Take 5 mg [facility] michael 9-16 by mouth 3 College (REGLAN) 5 00:00: times of MG tablet 00 daily Medicin (with e meals). metoclopram 2020-0 Yes 5mg Take 5 mg [facility] michael 9-16 by mouth 3 College (REGLAN) 5 00:00: times of MG tablet 00 daily Medicin (with e meals). Vital Signs Vital Name Observation Time Observation Value Comments Source Systolic blood 2021-05-20 16:54:00 119 mm[Hg] [facility] pressure Medicine Diastolic blood 2021-05-20 16:54:00 78 mm[Hg] [facility] Medicine Heart rate 2021-05-20 16:54:00 100 /min [facility] ollege of [facility] Body temperature 2021-05-20 16:54:00 36.5 [facility] Body height 2021-05-20 16:54:00 172.7 cm [facility] ollege of [facility] Body weight 2021-05-20 16:54:00 57.97 kg [facility] ollege of [facility] BMI 2021-05-20 16:54:00 19.43 kg/m2 [facility] ollege of Medicine Systolic blood 2020-09-08 20:11:00 109 mm[Hg] [facility] Medicine Diastolic blood 2020-09-08 20:11:00 72 mm[Hg] [facility] Medicine Heart rate 2020-09-08 20:11:00 92 /min [facility] ollege of Medicine Body height 2020-09-08 20:11:00 172.7 cm [facility] ollege of Medicine Body weight 2020-09-08 20:11:00 58.968 kg [facility] ollege of Medicine BMI 2020-09-08 20:11:00 19.77 kg/m2 [facility] ollege of Medicine Systolic blood 2020-09-08 20:11:00 109 mm[Hg] [facility] pressure Medicine Diastolic blood 2020-09-08 20:11:00 72 mm[Hg] [facility] Medicine Heart rate 2020-09-08 20:11:00 92 /min [facility] ollege of Medicine Body height 2020-09-08 20:11:00 172.7 cm [facility] ollege of Medicine Body weight 2020-09-08 20:11:00 58.968 kg [facility] ol[facility] of Medicine BMI 2020-09-08 20:11:00 19.77 kg/m2 [facility] ollege of Medicine Procedures This patient has no known procedures. Plan of Care Planned Activity Planned Date Details Comments Source Future Scheduled 2021-05-22 COVID-19 Vaccine (1) [facility] College of Test 00:15:33 [code = COVID-19 Medicine Vaccine (1)] Future Scheduled 2021-05-22 TETANUS SHOT (ADULT) [facility] of Test 00:15:33 [code = TETANUS SHOT Medicin e (ADULT)] Future Scheduled 2021-05-22 Hepatitis C [facility] Jose ege of Test 00:15:33 screening Medicine (procedure) [code = 734804300] Future Scheduled 2021-05-22 ZOSTER VACCINE (1 of [facility] of Test 00:15:33 2) [code = ZOSTER Medicine VACCINE (1 of 2)] Future Scheduled 2021-05-22 FALL SCREEN [code = [facility] Test 00:15:33 FALL SCREEN] Medicine Future Scheduled 2021-05-22 PNEUMOVAX >=65 [facility] Co llege of Test 00:15:33 (PPSV23) [code = Medicine PNEUMOVAX >=65 (PPSV23)] Future Scheduled 2021-05-22 MEDICARE AWV [facility] Jose ege of Test 00:15:33 (Initial) [code = Medicine MEDICARE AWV (Initial)] Future Scheduled 2021-05-22 FLU VACCINE > 6 [facility] of Test 00:15:33 MONTHS [code = FLU Medicine VACCINE > 6 MONTHS] Future Scheduled TETANUS SHOT (ADULT) [facility] of Test [code = TETANUS SHOT Medicin e (ADULT)] Future Scheduled HEPATITIS C [facility] Jose ege of Test SCREENING [code = Medicine HEPATITIS C SCREENING] Future Scheduled ZOSTER VACCINE (1 of [facility] of Test 2) [code = ZOSTER Medicine VACCINE (1 of 2)] Future Scheduled FALL SCREEN [code = [facility] FALL SCREEN] Medicine Future Scheduled PNEUMOVAX >=65 [facility] of Test (PPSV23) [code = Medicine PNEUMOVAX >=65 (PPSV23)] Future Scheduled MEDICARE AWV [facility] Jose ege of Test (Initial) [code = Medicine MEDICARE AWV (Initial)] Future Scheduled FLU VACCINE > 6 [facility] C ollege of Test MONTHS [code = FLU Medicine VACCINE > 6 MONTHS] Encounters Start End Encounter Admission Attending Care Care Encounter Source Date/Time Date/Time Type Type Clinicians Facility Department ID 2021-05-20 2021-05-20 Office FANNY Sloan [id number] [facility] 11:44:42 14:04:20 Visit [facility] Isa [id number] Co llege [id number] of [id number] [facility] 530 e 2020-12-19 2020-12-19 Outpatient NOÉ SLOAN [facility] [id number] [facility] 00:00:00 00:00:00 [facility] 2020-10-16 2020-10-16 Outpatient NOÉ SLOAN [facility] [id number] [facility] 00:00:00 00:00:00 [facility] 2020-09-08 2020-09-08 Office Shama Rod [id number] 13:49:24 14:29:05 Visit AMBULATOR [id number] Y 0.2.7.2.686 [id number] 2020-09-08 2020-09-08 Office Shama Rod [id number] [facility] 13:49:24 14:29:05 Visit AMBULATOR [id number] College Y 0.2.7.2.686 of [id number] [facility] 300 e 2020-05-28 2020-05-28 Outpatient NOÉ SLOAN [facility] [id number] [facility] 00:00:00 00:00:00 [facility] 2020-03-14 2020-03-14 Outpatient NOÉ SLOAN [facility] [id number] [facility] 00:00:00 00:00:00 [facility] Results Test Description Test Test Comments Results Result [facility] e Time Comments PET/CT, GALLIUM 2020-11- DOTATATE scan in 68 SKULL BASE TO 29 sk to hold * MID-THIGH 08:34:[address] [facility] injection 4 weeks [facility]: before the ELLIS BECKWITH scanReason for : 1945 Exam:->primary Sex: pancreatic M neuroendocrine tumor FINAL REPORT EXAMINATION: DOTATATE-PET/CT, 12/19/2020 11:55 AM CLINICAL HISTORY: 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 Chest: Lung volumes are low, with scattered regions of subsegmental atelectasis. No suspicious pulmonary nodules are identified. Abdomen and Pelvis: Numerous hepatic metastases continue to be intensely tracer-avid, with SUV measurements in the liver reaching 52.6 (previously 42.9). The mass in the distal pancreas is stable in size in the interim allowing for wasa-ts-mejm variability, also persistently tracer-avid with an SUV of 42.2 (previously 28.7). Scattered regions of curvilinear tracer activity in the abdomen localized to normal-appearing bowel, consistent with physiologic uptake. There is physiologic uptake in the kidneys, spleen, and adrenal glands. Musculoskeletal: Again seen are multiple sites of osseous tracer activity throughout the axial and proximal appendicular skeleton, with associated sclerotic foci on CT scanning. The overall extent of osseous tracer activity has increased in the interim. For example, there is greater extent of intramedullary uptake in the left femur, and new foci of activity have developed in the interim such as in the left iliac bone anteriorly (SUV = 5.3). A sclerotic focus in the mid sacrum has increased in size from 0.3 cm previously 20.7 cm currently, currently showing an SUV of 14.1 (previously 4.9). 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 The hepatic and pancreatic sites remain relatively stable in the interim, but osseous disease has progressed in the interim. Signed: Camryn Huddleston Verified Date/Time: 12/22/2020 08:34:05 -GLUCOSE METER 2020-12-19 12:59:00 Test Item Value Reference Range Interpretation Comme nts POC-GLUCOSE METER (BEAKER) 93 mg/dL 70-110 : TESTED AT [address] (test code = 1538) [facility], [id number]: Senior Speech Pathologist/Techni herber ID = [id number] for Fany Church MR, ABDOMEN, WITHOUT / WITH IV [id number] 14:09:00Unlisted Reason for Exam - Click Yes and Enter Reason Below->YesUnlisted Reason for Exam->Primary pancreatic [facility]endocrine [facility]GG[facility]Luna BROUSSARD : 1945 Sex: MFINAL REPORT MR, ABDOMEN, WITHOUT / WITH IV CONTRAST HISTORY: Unlisted Reason for ExamPrimary pancreatic neuroendocrine tumor COMPARISON: Abdominal MRI 06/15/2020 TECHNIQUE: MRI of the abdomen was performed with and without gadolinium, including heavily T2-weighted MRCP sequences. Multiplanar, multisequence images were obtained before and after intravenous injection of gadolinium contrast. FINDINGS: Lung bases: Unchanged trace atelectasis or scar in the lingula.Liver: Innumerable T1 hypointense and T2 hyperintense arterially enhancing metastases throughout the liver, no convincing change from 05/28/2020. For example, a lesion in segment 6 measures 16 x 12 mm (series 7 image 20), was 16 x 12 mm on 05/28/2020. A few biliary radicles are noted in segment 2 and 4, similarto minimally more conspicuous than 06/15/2020.Gallbladder and bile ducts: Unremarkable.Spleen: UnremarkablePancreas: Susceptibility artifact limits evaluation of the pancreatic tail, more so than on prior exam. *Persistent arterially enhancing T2 hypointense mass of the pancreatic tail, no convincing change given differences related to geometric distortion compared with 06/15/2020, measures approximately 5.0 x 3.1 cm (axial T2 series 7 image 13-14). Measured 4.9 x 3.3 cm on 05/28/2020 using similar measurement technique. Unchanged cystic lesion in the pancreatic tail distal to the mass, 31 mm.*An additional T2 hypointense lesion in the pancreatic body is unchanged, 14 x 8 mm (coronal T2 series 6 image17)*The main pancreatic duct is mildly dilated, up to 5.6 mm, no convincing change. There are several subcentimeter cystic lesions throughout the pancreas, largest 8 mm in the pancreatic tail, no change from 06/15/2020.Adrenals: UnremarkableKidneys and ureters: No hydronephrosis. Extrarenal pelvis on the left. Bilateral nonenhancing renal cysts..Bowel: Nondilated bowel with no wall thickening. Moderate amount of stool throughout the colon.Lymph nodes: Unremarkable.Peritoneum: Small pelvic free fluid, nonspecific.Vessels: UnremarkableAbdominal wall: T2 hypointense subcutaneous nodularity in the visualized gluteal adiposity on the coronal T2 series, nonspecific, unchanged.Bones: Numerous small mildlyT2 hyperintense and mildly enhancing osseous foci in the vertebral bodies, no convincing change. IMPR ESSION: Overall, no convincing change from 06/15/2020, with pancreatic body and tail masses, innumerable hepatic metastases, and numerous small osseous metastases. Unchanged mild dilation of the main pancreatic duct, cystic lesion measuring 3.1 cm in the pancreatic tail, and additional small cystic foci in the pancreas. Signed: Camryn Lopez MDReport Verified Date/Time: 10/16/2020 14:09:24 Reading Location: [place] [id number] CT Body Reading Room MR, ABDOMEN, WITHOUT / WITH IV [id number] 15:11:00FINAL REPORT TECHNIQUE: MRI of the abdomen and MRCP WITHOUT and WITH intravenous contrast. 3-D volume reconstructions were obtained to evaluate the biliary ductal system. INDICATION: Primary pancreatic neuroendocrine tumor. COMPARISON: 03/14/2020. FINDINGS: ABSENCE OF INTRAVENOUS CONTRAST DECREASES SENSITIVITY FOR DETECTION OF FOCAL LESIONS AND VASCULAR PATHOLOGY. LOWER THORAX:Unremarkable. LIVER: The innumerable arterial enhancing lesions throughout the bilateral hepatic lobes are not significantly changed in size.. BILIARY: Gallbladder is unremarkable. No biliary ductal dilatation or filling defect.SPLEEN: No splenomegaly.PANCREAS: Susceptibility artifact from metallic focus at the level of the gastric fundus limits evaluation of the pancreatic tail.. 3.8 x 2.4 cm enhancing mass in the tail the pancreas is not significantly changed. There is a stable unilocular cystic focus adjacent to the mass in the pancreatic tail measuring 3.4 cm. 1.5 cm enhancing focus in the pancreatic body is also not significantly changed. Remainder of the pancreas is mildly atrophic. No pancreatic ductal dilation. There are a few subcentimeter cystic foci which communicate with the main panc reatic duct measuring up to 6 mm in the pancreatic body likely representing sidebranch IPMN. ADRENALS: No adrenal nodules.KIDNEYS/URETERS: No hydronephrosis or solid mass lesions. Multiple bilateral renal cysts with the largest measuring 5.5 cm in the upper pole of the right kidney. There are a few peripelvic cysts in the bilateral kidneys. PERITONEUM/RETROPERITONEUM: No free fluid.LYMPH NODES: No lymphadenopathy.VESSELS: Unremarkable. GI TRACT: No distention or wall thickening. BONES AND SOFT TISSUES: There are stable scattered enhancing foci within the thoracolumbar spine and pelvis likely representing metastatic disease. IMPRESSION:Unchanged appearance of pancreatic body and tail masses consistent with known malignancy. No interval change of diffuse hepatic metastatic disease. Unchanged osseous metastatic disease. Signed: Rosetta Boyce MDReport Verified Date/Time: 05/28/2020 15:11:30 Reading Location: [facility] Diagnostic Imaging Reading Room - [facility] F1 1129 MR, ABDOMEN, WITHOUT / WITH IV [id number] 09:43:00FINAL REPORT MRI of the abdomen with and without contrast, MRCP Clinical History: Primary pancreatic neuroendocrine tumor Technique: Multiplanar and multisequence MR images of the abdomen are obtained before and after intravenous contrast administration. Contrast is administered to evaluate neoplasm and vasculature. Multiplanar and multisequence MR images of the biliary systemare obtained, with dedicated MRCP protocol and images. In addition, 3 dimensional reformatted imagesof the biliary system are obtained to evaluate the biliary anatomy. Comparison: Correlated with gallium scan dated October 12, 2019 Discussion: Liver is not cirrhotic in morphology. It contains innumerable T2 hyperintense lesion demonstrating early enhancement, compatible with metastasis of known neuroendocrine tumor. There is mild dilatation of several biliary radicles, likely related to the presence of metastatic disease, most pronounced in the posterior right lobe. Gallbladder is normal. Hepatic vasculature is patent. Main portal vein measures 12 mm in diameter. Pancreatic evaluation is suboptimal due to hardware artifact from a surgical clip in the gastric fundus. In the pancreatic tail, there is a 3 cm enhancing mass, compatible with known neoplasm. There is an adjacent simple appearing 3.4 x 2 cm cystic structure that may represent a pseudocyst. There is a second lesion measuring approximately 1 cm located in the pancreatic body. No ductal dilatation. No significant peripancreatic inflammation. Spleen is normal in size. Adrenal glands appear unremarkable. No hydronephrosis. There are se veral cysts in both kidneys. No evidence of bowel obstruction, no ascites or lymphadenopathy. There are scattered small enhancing lesions in the thoracolumbar spine, and bony pelvis, also likely to represent metastasis. Impression: Extensive liver metastasis. There is mild dilatation of several biliary radicles. 3 cm mass in the pancreatic tail, and 1 cm mass in the pancreatic body. Multiple tiny bony metastasis in the axial skeleton. Signed: Leah Borrego MDReport Verified Date/Time: 03/17/2020 09:43:36 Reading Location: [facility] B1 [id number] Ortho Consult Reading Room PET/CT, GALLIUM 68 SKULL BASE TO [id number] 09:55:00FINAL REPORT EXAMINATION: DOTATATE-PET/CT, 10/12/2019 10:51 AM CLINICAL HISTORY: Newly diagnosed pancreatic neuroendocrine tumor with hepatic metastases.INDICATION: PET/CT is obtained for initial treatment evaluation.COMPARISON: Outside CT of the abdomen 08/09/2019 TECHNIQUE:Radiopharmaceutical: Ga-68 DotatateAdministered activity: 5.3] mCiRoute of administration: Intravenously via the right handLocalization time: 60 minutesScan extent: Skull base to the proximal thighsAdditional imaging: NoneT Code: 20824 FINDINGS:Head and Neck: There is no mariela activity along thecervical chains. Chest: There are no suspicious pulmonary [...] Camryn Huddleston MDReport Verified Date/Time: 10/16/2019 09:55:55 TISSUE [id number] 07:43:00Surgical Pathology Report Case: [id number] Authorizing Provider: Jd Srinivasanmichael Lane Collected: 08/28/2019 1456 Ordering Location: [facility] Endoscopy Received: 08/29/2019 0749 Services Pathologist: Sayda Rodrigues MD Specimens: A) - Polyp, Gastric, gsatric polyp B) -Liver, liver metastasis in formalin, Attn Dr. Stanley C) - Pancreas, Pancreas tail mass in formalin , Attn; Dr. Stanley A. STOMACH, POLYP, POLYPECTOMY- POLYPOID FOVEOLAR HYPERPLASIA WITH [...] see comment Signing Pathologist Direct Phone Line: [phone] signed by Sayda Rodrigues MD on 09/05/2019 at 7:43 AMPreliminary result electronically signed by Sayda Rodrigues MD on 09/03/2019 at 3:59 PMSpecimen C: With regards to pancreatic tail mass, the biopsy contains very small amount of neuroendocrine cells and the features are consistent with [facility] radiological [facility].25539, 12134, 39789 X2, 30564 X2, 05975 X2, 35245 Q1Gqcileqylzft diagnosis: pancreatic massPostoperative diagnosis: pancreatic mass A. [...] irregular to elongated pieces of red tissue. Thespecimen is submitted in toto in cassettes C1-C2. JG/Giovani Microscopic examination is performed and the findings are incorporated in the diagnostic line. Warthin starry stain is negative for Helicobacterpylori. B, C. Microscopic examination is performed and the findings are incorporated in the diagnostic line. Immunostains for synaptophysin, chromogranin and Ki-67 were performed on block B1, C1 AND C2with appropriate controls. The tumor is positive for synaptophysin and chromogranin. The proliferation index as assessed by Ki-67 is ~2%. The interpretation of this case included the use of immunohistochemistry or special stains.Control Slides Examined: In-house known positive controls were evaluatedalong with the test tissue. These control slides run alongside of the patients sample show appropriate staining. Internal positive and negative controls when available are evaluated Immunohistochemistry technical testing was performed at [facility], Pathology Laboratory where itwas developed and its performance characteristics were determined. It has not been cleared or approved by the U.S. Food and Drug Administration. The FDA has determined that such clearance or approval is not necessary. The test is used for clinical purposes. It should not be regarded as investigationalor for research. This laboratory is certified under the Clinical Laboratory Improvement Amendments of 1988 (CLIA-88) as qualified to perform high complexity clinical laboratory testing.
== END 2021-07-08 14:15 | disposition home or self-care (01) ==
LOC: ERHOLD 16:21 → 4TH 19:18
PROVIDERS: ADMIT Internal Medicine; ATTEND Internal Medicine
DX: E86.0 Dehydration (principal); K59.00 Constipation, unspecified; C25.4 Malignant neoplasm of endocrine pancreas; R11.2 Nausea with vomiting, unspecified; I10 Essential (primary) hypertension; E78.5 Hyperlipidemia, unspecified; N40.0 Benign prostatic hyperplasia without lower urinary tract symptoms; R73.03 Prediabetes; K56.0 Paralytic ileus; R16.0 Hepatomegaly, not elsewhere classified; I66.9 Occlusion and stenosis of unspecified cerebral artery; Z86.73 Personal history of transient ischemic attack (TIA), and cerebral infarction without residual deficits; Z20.822 Contact with and (suspected) exposure to COVID-19
CPT/HCPCS: 93005; 85025 ×2; 80048 ×2; 36415 ×2; 83735 ×2; 84100; 85610; 80076; 85730; 84443; 82607; 82306; 74019; 71046; U0003; G0379; J1650 ×2; J2405; G0378 ×2; 81003; 81015

== ENCOUNTER 2021-09-06 20:51 | Emergency (ER) | payer OTHER ==
--- OUTSIDE RECORDS SUMMARY | 2021-09-06 20:55 | XMS REPORT | Continuity of Care Document ---
:1945 Author Organization [facility] t Address [address] [place] [address] Care Team Providers Name Role Phone Nathalia PITTMAN Attending Clinician NATHALIA Attending Clinician Unavailable Marcel PITTMAN Attending Clinician TRACIE MOONEY Attending Clinician Unavailable TRACIE MOONEY Admitting Clinician Unavailable Payers Payer Name Policy Type Policy Number Effective Date Expiration Date S ource MEDICARE A B [id number] 2008 00:00:00 [employer] INDEMNITY [id number] 2013 NON CONTR 00:00:00 Problems Condition Condition Condition Status Onset Resolution Last Treating Co mments Source Name Details Category Date Date Treatment Clinician Date Skin rash Skin rash Disease Active 2019- [facility] 6-28 College 00:00: of 00 Medicin e Liver Liver Disease Active 0 [facility] metastases metastases 2-05 Co llege (HCCode) (HCCode) 00:00: of 00 Medicin e Bone Bone Disease Active 2020-0 [facility] metastases metastases 2-05 Co llege (HCCode) (HCCode) 00:00: of 00 Medicin e Primary Primary Disease Active 2018-09 [facility] pancreatic pancreatic 2-19 Co llege neuroendoc neuroendoc 00:00: of rine tumor rine tumor 00 Me dicin e Allergies, Adverse Reactions, Alerts Allergy Allergy Status Severity Reaction(s) Onset Inactive Treating Comm ents Source Name Type Date Date Clinician NO KNOWN Allergy Active [facility] Social History Social Habit Start Date Stop Date Quantity Comments Source History [facility] ge Alcohol Std Drinks of Med icine History [facility] Alcohol Binge of Medicine Alcohol intake 2020-09-08 2020-09-08 Lifetime [facility] Col lege 00:00:00 00:00:00 non-drinker of Medicine (finding) Tobacco use and 2019-08-27 2019-08-27 Never used [facility] l[facility] exposure 00:00:00 00:00:00 of Medicine History [facility] 2019-08-27 2019-08-27 1 [facility] Alcohol Frequency 00:00:00 00:00:00 of Medi cine Sex Ass[birth year] [facility] Co llege 00:00:00 00:00:00 of Medicine Smoking Status Start Date Stop Date Source Never smoker [facility] o f Medicine Medications Ordered Filled Start Stop Current Ordering Indication Dosage Frequency Signature Comments Components Source Medication Medication Date Date Medication? Clinician (SIG) Name Name geovanycinbritney 2019-09 Yes [id number] Apply to [facility] 2-14 [facility] ([place]) 00:00: affected of 0.1 % 00 areas Medicin ointment 2x/day x 3 e weeks as needed, then weekends only x 2 weeks. Can use 1-2 week(s) max on face (avoid eyelids), groin, armpits. triamcinolo 2019-09 Yes [id number] Apply to [facility] 2-14 [facility] ([place]) 00:00: affected of 0.1 % 00 areas [...] Source Systolic blood 2021-05-20 16:54:00 119 mm[Hg] [facility] pressure Medicine Diastolic blood 2021-05-20 16:54:00 78 mm[Hg] [facility] Medicine Heart rate 2021-05-20 16:54:00 100 /min [facility] ollege of [facility] Body temperature 2021-05-20 16:54:00 36.5 Erin [facility] Body height 2021-05-20 16:54:00 172.7 cm [facility] ollege of [facility] Body weight 2021-05-20 16:54:00 57.97 kg [facility] ollege of [facility] BMI 2021-05-20 16:54:00 19.43 kg/m2 [facility] ollege of Medicine Systolic blood 2020-09-08 20:11:00 109 mm[Hg] [facility] Medicine Diastolic blood 2020-09-08 20:11:00 72 mm[Hg] [facility] Medicine Heart rate 2020-09-08 20:11:00 92 /min [facility] ollege of Medicine Body height 2020-09-08 20:11:00 172.7 cm [facility] ollege of Medicine Body weight 2020-09-08 20:11:00 58.968 kg [facility] ol[facility] of Medicine BMI 2020-09-08 20:11:00 19.77 kg/m2 [facility] ol[facility] of Medicine Systolic blood 2020-09-08 20:11:00 109 mm[Hg] [facility] Medicine Diastolic blood 2020-09-08 20:11:00 72 mm[Hg] [facility] Medicine Heart rate 2020-09-08 20:11:00 92 /min [facility] ol[facility] of Medicine Body height 2020-09-08 20:11:00 172.7 cm [facility] ol[facility] of Medicine Body weight 2020-09-08 20:11:00 58.968 kg [facility] ol[facility] of Medicine BMI 2020-09-08 20:11:00 19.77 kg/m2 [facility] ol[facility] of Medicine Procedures This patient has no known procedures. Plan of Care Planned Activity Planned Date Details Comments Source Future Scheduled 2021-05-22 COVID-19 Vaccine (1) [facility] of Test 00:15:33 [code = COVID-19 Medicine Vaccine (1)] Future Scheduled 2021-05-22 TETANUS SHOT (ADULT) [facility] [employer] 00:15:33 [code = TETANUS SHOT Medicin e (ADULT)] Future Scheduled 2021-05-22 Hepatitis C [facility] Jose ege of Test 00:15:33 screening Medicine (procedure) [code = 448969820] Future Scheduled 2021-05-22 ZOSTER VACCINE (1 of [facility] [employer] Test 00:15:33 2) [code = ZOSTER Medicine VACCINE (1 of 2)] Future Scheduled 2021-05-22 FALL SCREEN [code = [facility] [facility] [employer] [facility] [employer] 00:15:33 FALL SCREEN] Medicine Future Scheduled 2021-05-22 PNEUMOVAX >=65 [facility] Co llege of Test 00:15:33 (PPSV23) [code = Medicine PNEUMOVAX >=65 (PPSV23)] Future Scheduled 2021-05-22 MEDICARE AWV [facility] Jose [facility] of Test 00:15:33 (Initial) [code = Medicine MEDICARE AWV (Initial)] Future Scheduled 2021-05-22 FLU VACCINE > 6 [facility] of Test 00:15:33 MONTHS [code = FLU Medicine VACCINE > 6 MONTHS] Future Scheduled TETANUS SHOT (ADULT) [facility] [employer] [facility] Test [code = TETANUS SHOT Medicin e (ADULT)] Future Scheduled HEPATITIS C [facility] Jose [facility] of Test SCREENING [code = Medicine HEPATITIS C SCREENING] Future Scheduled ZOSTER VACCINE (1 of [facility] [employer] Test 2) [code = ZOSTER Medicine VACCINE (1 of 2)] Future Scheduled FALL SCREEN [code = [employer] FALL SCREEN] Medicine Future Scheduled PNEUMOVAX >=65 [employer] [facility] of [facility] (PPSV23) [code = Medicine PNEUMOVAX >=65 (PPSV23)] Future Scheduled MEDICARE AWV [facility] [employer] of Test (Initial) [code = Medicine MEDICARE AWV (Initial)] Future Scheduled FLU VACCINE > 6 [facility] of Test MONTHS [code = FLU Medicine VACCINE > 6 MONTHS] Encounters Start End Encounter Admission Attending Care Care Encounter Source Date/Time Date/Time Type Type Clinicians Facility Department ID 2021-05-20 2021-05-20 [id number] [facility] 11:44:42 14:04:20 Visit Anude Isa [id number] Co llege 0.2.7.2.686 of [id number] [facility] 530 e 2020-12-19 2020-12-19 Outpatient NOÉ SLOAN [facility] [id number] SLE 00:00:00 00:00:00 [facility] 2020-10-16 2020-10-16 Outpatient NOÉ SLOAN [facility] [id number] [facility] 00:00:00 00:00:00 TANNOR 2020-09-08 2020-09-08 Office Shama Rod [id number] [facility] 13:49:24 14:29:05 Visit AMBULATOR 350.1.13.21 College Y 0.2.7.2.686 of [id number] [facility] 300 e 2020-09-08 2020-09-08 Office Shama Rod [id number] 13:49:24 14:29:05 Visit AMBULATOR 350.1.13.21 Y 0.2.7.2.686 [id number] 300 2020-05-28 2020-05-28 Outpatient NOÉ SLOAN [facility] [id number] [facility] 00:00:00 00:00:00 TANNOR 2020-03-14 2020-03-14 Outpatient NOÉ SLOAN [facility] [id number] [facility] 00:00:00 00:00:00 [facility] Results Test Description Test Test Comments Results Result [facility] e Time Comments PET/CT, GALLIUM 2020-11- DOTATATE [...] to the proximal thighsAdditional imaging: NoneCPT Code: 04738 FINDINGS:Head and Neck: There is no mariela [...] in size in the interim allowing for gagl-vs-cvnm variability, also persistently tracer-avid with an SUV [...] (BEAKER) 93 mg/dL 70-110 : TESTED AT [facility] [address] [facility] (test code = 1538) [facility] [place], [id number]: Sharepoint Net Developer/Techni herber ID = [id number] for Fany Church MR, ABDOMEN, WITHOUT / WITH IV [id number] 14:09:00Unlisted Reason for Exam - Click Yes and Enter Reason Below->YesUnlisted Reason for Exam->Primary pancreatic [facility]endocrine [facility] BECKWITHLuna BROUSSARD : 1945 Sex: MFINAL REPORT MR, [...] MDReport Verified Date/Time: 10/16/2020 14:09:24 Reading Location: [facility] C013 CT Body Reading Room MR, ABDOMEN, WITHOUT / WITH IV [id number] 15:11:00FINAL REPORT TECHNIQUE: MRI of the abdomen [...] MDReport Verified Date/Time: 05/28/2020 15:11:30 Reading Location: [facility] Diagnostic Imaging Reading Room - [facility] F1 1129 MR, ABDOMEN, WITHOUT / WITH IV [id number] 09:43:00FINAL REPORT MRI of the abdomen with [...] metastasis in the axial skeleton. Signed: Leah Borregoeport Verified Date/Time: 03/17/2020 09:43:36 Reading Location: [facility] C013X Ortho Consult Reading Room PET/CT, GALLIUM 68 SKULL BASE TO [id number] 09:55:00FINAL REPORT EXAMINATION: DOTATATE-PET/CT, 10/12/2019 10:51 AM CLINICAL HISTORY: Newly diagnosed pancreatic neuroendocrine tumor with hepatic metastases.INDICATION: PET/CT is obtained for initial treatment evaluation.COMPARISON: Outside CT of the abdomen 08/09/2019 TECHNIQUE:Radiopharmaceutical: Ga-68 DotatateAdministered activity: 5.3] mCiRoute of administration: Intravenously via the right handLocalization time: 60 minutesScan extent: Skull base to the proximal thighsAdditional imaging: NoneCPT Code: 36324 FINDINGS:Head and Neck: There is no mariela [...] [place] MDReport Verified Date/Time: 10/16/2019 09:55:55 TISSUE [id number] 07:43:00Surgical Pathology Report Case: [id number] Authorizing Provider: Jd, Srinivasan Tracie Collected: 08/28/2019 1456 Ordering Location: [facility] Endoscopy Received: 08/29/2019 0749 Services Pathologist: Sayda [...] see comment Signing Pathologist Direct Phone Line: [phone] signed by Sayda Rodrigues MD on 09/05/2019 at 7:43 AMPreliminary result electronically signed by Sayda Rodrigues MD on 09/03/2019 at 3:59 PMSpecimen C: With regards to pancreatic tail mass, the biopsy contains very small amount of neuroendocrine cells and the features are consistent with neuroendocrine tumor in the [facility] clinical and radiological setting.00155, 44938, 53166 X2, 61238 X2, 15010 X2, 00594 [id number] diagnosis: pancreatic massPostoperative diagnosis: pancreatic mass A. [...] evaluated Immunohistochemistry technical testing was performed at [facility], Pathology Laboratory where itwas developed and its [...]
[2021-09-06] MEDS ORDERED: TETANUS & DIPHTHERIA TOX,ADULT 0.5 ML VIAL ONE (23:11)
--- NOTE | 2021-09-06 23:53 | ER ---
Nurse's Notes [facility] Name: Dominguez Watson Age: 76 yrs Sex: Male : 1945 Arrival Date: 09/06/2021 Time: 21:11 Bed 6 Private MD: Diagnosis: Fall (on) (from) unspecified stairs and steps-BED;Laceration without foreign body of other part of head;Dementia in other diseases classified elsewhere without behavioral disturbance;Weakness-Hospice Care Presentation: 09/06 21:10 Chief complaint: EMS states: Called for patient fall, found on floor next to bed; lp1 Patient currently on hospice, abrasion noted to right forehead. 21:10 Care prior to arrival: Bleeding of injury controlled. Placed on backboard. Mechanism of lp1 Injury: Fall out of bed. 21:10 Acuity: JUANY 3 lp1 21:10 Method Of Arrival: EMS: [facility] lp1 21:27 Coronavirus screen: At this time, the client does not indicate any symptoms associated lp1 with coronavirus-19. Ebola Screen: No symptoms or risks identified at this time. Initial Sepsis Screen: Does the patient meet any 2 criteria? No. Patient's initial sepsis screen is negative. Does the patient have a suspected source of infection? No. Patient's initial sepsis screen is negative. Risk Assessment: Do you want to hurt yourself or someone else? Patient reports no desire to harm self or others. Onset of symptoms was September 06, 2021. 22:44 Trauma event details: [facility] Injury occurred: at tw5 home. Injury occurred: September 06, 2021. Historical: - Allergies: 21:28 No Known Allergies; lp1 - Home Meds: 21:28 Tramadol Oral [Active]; lp1 - PMHx: 21:28 pancreatic cancer; lp1 - Immunization history:: Adult Immunizations up to date. - Immunization history: Last tetanus immunization: unknown. - Social history:: Smoking status: unknown. - Family history:: not pertinent. Screenin:31 Abuse screen: Denies threats or abuse. Denies injuries from another. Nutritional tw5 screening: On. Tuberculosis screening: No symptoms or risk factors identified. Fall Risk Fall in past 12 months (25 points). Secondary diagnosis (15 points) IV access (20 points). Ambulatory Aid- None/Bed Rest/Nurse Assist (0 pts). Gait- Impaired (20 pts.). Mental Status- Overestimates/Forgets Limitations (15 pts.). Primary Survey: 22:44 NO uncontrolled hemorrhage observed. A: Airway: patent. Breathing/Chest: Respiratory tw5 pattern:. Circulation: Cardiac rhythm: sinus rhythm. Disability Alert. Exposure/Environment: There is no evidence of uncontrolled external bleeding. Reassessment Airway Airway Patent Breathing/Chest Respiratory pattern Regular Circulation Heart rhythm Sinus rhythm Disability Alert. Assessment: 21:31 Pain: Unable to use pain scale. Does not appear to understand pain scale. Neuro: Level tw5 of Consciousness is awake, alert, confused, Oriented to person. Injury Description: Laceration sustained to forehead is 0.5 to 2.5 cm long, not bleeding, was sustained 30-60 minutes ago. a small amount of bleeding noted at this time. cleaned patients head of blood. 22:44 General: Appears in no apparent distress. ill, slender, Behavior is restless. tw5 09/07 00:18 Reassessment: Aware of waiting for CT results, at bedside. lp1 00:42 Reassessment: Dressings applied to right elbow skin tear and steff to right side of lp1 forehead. Vital Signs: 09/06 21:27 BP 176 / 102; Pulse 92; Resp 16; Temp 97.4(A); Pulse Ox 99% on R/A; Weight 40.82 kg; lp1 22:46 BP 164 / 96; Pulse 91; Resp 20; Pulse Ox 98% on R/A; tw5 09/07 01:13 BP 156 / 92; Pulse 84; Resp 18; Pulse Ox 98% on R/A; tw5 [place] Coma Score: 09/06 21:29 Eye Response: spontaneous(4). Verbal Response: confused(4). Motor Response: localizes lp1 pain(5). Total: 13. 21:29 Patient baseline A/O x1 per family at bedside lp1 Trauma Score (Adult): 21:29 Eye Response: spontaneous(1); Verbal Response: confused(1); Motor Response: localizes lp1 pain(1); Systolic BP: > 89 mm Hg(4); Respiratory Rate: 10 to 29 per min(4); [place] Score: 13; Trauma Score: 11 ED Course: 21:11 Patient arrived in ED. mw2 21:16 Kenrick Perez MD is Attending Physician. [facility] 21: Triage completed. lp1 21:28 Arm band placed on. lp1 21:28 Patient maintains SpO2 saturation greater than 95% on room air. Thermoregulation: warm lp1 blanket given to patient. 21:31 Shelli Renner is Primary Nurse. tw5 21:31 Patient has correct armband on for positive identification. Placed in gown. Bed in low tw5 position. Call light in reach. Side rails up X2. Adult w/ patient. library monitor on. Pulse ox on. NIBP on. Door closed. Noise minimized. Moved to private room. Warm blanket given. Verbal reassurance given. Cleaned of incontinence. Linen changed. 22:45 Wound care: to abrasion, located on left hand was dressed with Vaseline gauze. tw5 09/07 00:27 CT Head C Spine In Process Unspecified. EDWA 01:14 Assist provider with laceration repair on head that was between 2.6 to 7.5 cm using tw5 steff. Set up tray. Performed by Kenrick Perez MD Dressed with. IV discontinued, intact, bleeding controlled, No redness/swelling at site. Pressure dressing applied. Administered Medications: 09/06 23:11 Drug: Tetanus-Diphtheria Toxoid Adult 0.5 ml {Promotional Marketing Agent: [employer]. Exp: tw5 11/28/2022. Lot #: [id number]. } Route: IM; Site: right deltoid; 09/07 01:13 Follow up: Response: No adverse reaction tw5 Intake: 09/06 22:44 PO: 0ml; Total: 0ml. tw5 Output: 22:44 Other: 1 (Diapers) ; Total: 0ml. tw5 Outcome: 23:52 Discharge ordered by . [facility] 09/07 01:15 Discharged to home via EMS tw5 Condition: good Discharge instructions given to family, Instructed on discharge instructions, follow up and referral plans. 01:16 Patient left the ED. tw5 Signatures: Dispatcher [employer] EDMS Kenrick Perez MD MD cha Pena, Laura, RN RN lp1 Camryn Pratt mw2 Shelli Renner tw5 Corrections: (The following items were deleted from the chart) 09/06 21:28 21:28 Social history: Smoking status: Patient denies any tobacco usage or history of. lp1 lp1
--- NOTE | 2021-09-06 23:53 | EDPHYS ---
Physician Documentation [facility] – [place], [place] Name: Dominguez Watson Age: 76 yrs Sex: Male : 1945 Arrival Date: 09/06/2021 Time: 21:11 Bed 6 Private MD: ED Physician Kenrick Perez HPI: 09/06 23:46 This 76 yrs old Male presents to ER via EMS with complaints of Fall Injury. angy 23:46 This 76 yrs old Male presents to ER via EMS with complaints of Fall Injury. angy 23:46 Details of fall: The patient fell from a height, off furniture, approximately 2 feet. angy Onset: The symptoms/episode began/occurred just prior to arrival. Associated injuries: The patient sustained injury to the head, abrasion, laceration, 2.54 cm(s). Severity of symptoms: At their worst the symptoms were mild, in the emergency department the symptoms are unchanged. The patient has experienced similar episodes in the past, a few times. Historical: - Allergies: 21:28 No Known Allergies; lp1 - Home Meds: 21:28 Tramadol Oral [Active]; lp1 - PMHx: 21:28 pancreatic cancer; lp1 - Immunization history:: Adult Immunizations up to date. - Immunization history: Last tetanus immunization: unknown. - Social history:: Smoking status: unknown. - Family history:: not pertinent. ROS: 23:46 Constitutional: Negative for fever, chills, and weight loss, Eyes: Negative for injury, angy pain, redness, and discharge, ENT: Negative for injury, pain, and discharge, Neck: Negative for injury, pain, and swelling, Cardiovascular: Negative for chest pain, palpitations, and edema, Respiratory: Negative for shortness of breath, cough, wheezing, and pleuritic chest pain, Abdomen/GI: Negative for abdominal pain, nausea, vomiting, diarrhea, and constipation, Back: Negative for injury and pain, : Negative for injury, bleeding, discharge, and swelling, MS/Extremity: Negative for injury and deformity, Neuro: Negative for headache, weakness, numbness, tingling, and seizure, Psych: Negative for depression, anxiety, suicide ideation, homicidal ideation, and hallucinations, Allergy/Immunology: Negative for hives, rash, and allergies, Endocrine: Negative for neck swelling, polydipsia, polyuria, polyphagia, and marked weight changes, Hematologic/Lymphatic: Negative for swollen nodes, abnormal bleeding, and unusual bruising. 23:46 Skin: Positive for laceration(s), of the forehead. Exam: 23:46 Constitutional: This is a well developed, well nourished patient who is awake, alert, anyg and in no acute distress. Head/Face: Normocephalic, atraumatic. Eyes: Pupils equal round and reactive to light, extra-ocular motions intact. Lids and lashes normal. Conjunctiva and sclera are non-icteric and not injected. Cornea within normal limits. Periorbital areas with no swelling, redness, or edema. ENT: Nares patent. No nasal discharge, no septal abnormalities noted. Tympanic membranes are normal and external auditory canals are clear. Oropharynx with no redness, swelling, or masses, exudates, or evidence of obstruction, uvula midline. Mucous membranes moist. Neck: Trachea midline, no thyromegaly or masses palpated, and no cervical lymphadenopathy. Supple, full range of motion without nuchal rigidity, or vertebral point tenderness. No Meningismus. Chest/axilla: Normal chest wall appearance and motion. Nontender with no deformity. No lesions are appreciated. Cardiovascular: Regular rate and rhythm with a normal S1 and S2. No gallops, murmurs, or rubs. Normal PMI, no JVD. No pulse deficits. Respiratory: Lungs have equal breath sounds bilaterally, clear to auscultation and percussion. No rales, rhonchi or wheezes noted. No increased work of breathing, no retractions or nasal flaring. Abdomen/GI: Soft, non-tender, with normal bowel sounds. No distension or tympany. No guarding or rebound. No evidence of tenderness throughout. Back: No spinal tenderness. No costovertebral tenderness. Full range of motion. Skin: Warm, dry with normal turgor. Normal color with no rashes, no lesions, and no evidence of cellulitis. MS/ Extremity: Pulses equal, no cyanosis. Neurovascular intact. Full, normal range of motion. Psych: Awake, alert, with orientation to person, place and time. Behavior, mood, and affect are within normal limits. 23:46 Neuro: Orientation: unable to test, Mentation: confused, Memory: unable to test, Cranial nerves: grossly normal, is grossly normal based on the patient's age, no acute changes, Cerebellar function: unable to test, Motor: moves all fours, Sensation: unable to test, Gait: not tested. Babinski testing is normal, seizure activity, is not displayed by the patient. Vital Signs: 21:27 BP 176 / 102; Pulse 92; Resp 16; Temp 97.4(A); Pulse Ox 99% on R/A; Weight 40.82 kg; lp1 22:46 BP 164 / 96; Pulse 91; Resp 20; Pulse Ox 98% on R/A; tw5 09/07 01:13 BP 156 / 92; Pulse 84; Resp 18; Pulse Ox 98% on R/A; tw5 [place] Coma Score: 09/06 21:29 Eye Response: spontaneous(4). Verbal Response: confused(4). Motor Response: localizes lp1 pain(5). Total: 13. 21:29 Patient baseline A/O x1 per family at bedside lp1 Trauma Score (Adult): 21:29 Eye Response: spontaneous(1); Verbal Response: confused(1); Motor Response: localizes lp1 pain(1); Systolic BP: > 89 mm Hg(4); Respiratory Rate: 10 to 29 per min(4); Sixto Score: 13; Trauma Score: 11 Laceration: 23:53 Wound Repair of 2.5cm ( 1.0in ) subcutaneous laceration to forehead. Linear shaped.. angy Distal neuro/vascular/tendon intact. Anesthesia: none with 0 mls of 1% lidocaine. Wound prep: Simple cleansing with betadine by me. Skin closed with 2 1-0 [place] using staple gun. Dressed with non-adherent dressing. MDM: 21:16 Patient medically screened. angy 23:49 Differential diagnosis: abrasion, closed head injury, contusion, fracture, laceration, angy multiple trauma, sprain, strain. Data reviewed: vital signs, nurses notes, EMS record, radiologic studies, CT scan, plain films. Data interpreted: manager monitoring: rate is 91 beats/min, rhythm is regular, Pulse oximetry: on room air is 98 %. Test interpretation: by ED physician or midlevel provider:. Counseling: I had a detailed discussion with the patient and/or guardian regarding: the historical points, exam findings, and any diagnostic results supporting the discharge/admit diagnosis, radiology results, the need for outpatient follow up, for definitive care, an grips. 09/06 23:05 Order name: CT Head C Spine angy 09/06 23:05 Order name: Misc. Order: stapler; Complete Time: 00:13 angy Administered Medications: 23:11 Drug: Tetanus-Diphtheria Toxoid Adult 0.5 ml {Ship Purser: [employer]. Exp: tw5 11/28/2022. Lot #: [id number]. } Route: IM; Site: right deltoid; 09/07 01:13 Follow up: Response: No adverse reaction tw5 Disposition Summary: 09/06/21 23:52 Discharge Ordered Location: Home angy Problem: new angy Symptoms: have improved angy Condition: Fair angy Diagnosis - Fall (on) (from) unspecified stairs and steps - BED angy - Laceration without foreign body of other part of head angy - Dementia in other diseases classified elsewhere without behavioral disturbance angy - Weakness - Hospice Care angy Followup: angy - With: Private Physician - When: 2 - 3 days - Reason: Recheck today's complaints, Continuance of care, Re-evaluation by your physician Discharge Instructions: - Discharge Summary Sheet angy - Dementia angy - Head Injury, Adult angy - Fall Prevention in the Home, Adult angy - Laceration Care, Adult angy - Weakness angy - Laceration Care, Adult, [id number] angy - Fall Prevention in the Home, Adult, [id number] angy - Weakness, [id number] angy - Head Injury, Adult, Fevf-kb-Cbfk angy - Hospice angy Forms: - Medication Reconciliation Form angy - Thank You Letter angy - Antibiotic Education angy - Prescription Opioid Use angy Signatures: Dispatcher [employer] EDKenrick Griffiths MD MD cha Pena, Laura RN RN lp1 Shelli Renner tw5 Corrections: (The following items were deleted from the chart) 09/06 21:28 21:28 Social history: Smoking status: Patient denies any tobacco usage or history of. lp1 lp1
[2021-09-07 01:22] VITALS: TEMP 97.4
[2021-09-07 01:23] VITALS: O2SAT 98
[2021-09-07 01:24] VITALS: BP 156/92
--- NOTE | 2021-09-07 14:46 | RAD REPORT ---
EXAM DESCRIPTION: CT - Head C Spine Mpr Wo Con - 09/07/2021 6:00 am CLINICAL HISTORY: 76 years, Male, PAIN COMPARISON: 11/11/2020. FINDINGS: Multiple transaxial tomograms of the brain were obtained from the base of the skull to the vertex without contrast. 2-D multiplanar reformats and the coronal and sagittal plane were performed and reviewed. Multiple axial CT images through the cervical spine were obtained at 2 mm slice thickness at 2 mm int erval reconstruction. In addition 2-D multiplanar reformats and the sagittal coronal plane were perfo rmed and reviewed. This exam was performed according to our departmental dose-optimization protocol, which includes auto mated exposure control, adjustment of the mA and/or kV according to patient size and/or use of iterat carolyn reconstruction technique. CT head: Brain parenchyma demonstrate mild prominence of the sulci and gyri are corresponding to mild cerebral and cerebellar atrophy. There is no midline shift and/or mass effect. There is no evidence for acute intracranial hemorrhage. There are vascular ossifications within the cavernous sinuses and posterior circulation Lateral ventricles and cisterns displace normal appearance. No intra or ext ra axial fluid collections were seen. The calvarium is intact with no evidence for fracture. The visu alized portions of the paranasal sinuses and orbits demonstrate to be clear. There is a frontal skin/ subcutaneous density perhaps suggesting site of contusion. CT cervical spine: There is diffuse bony osteopenia. Several sclerotic lesions are identified within the vertebral bodies of C4-C5 C7-T1 and T2. Tiny superior plate compression deformity at T1. The rest of the the vertebral bodies and vertebral body disc heights demonstrate to be within normal limits. There is no evidence for subluxation. There is anterior spondylosis at C4-C7. The spinal canal demons trate no evidence for significant stenosis. Neural foramina demonstrate to be unremarkable. There are uncovertebral degenerative changes. There is no prevertebral soft tissue swelling. Sagittal martinez l reformatted images demonstrate no subluxation or bony abnormalities. IMPRESSION: No evidence for acute intracranial hemorrhage, mass effect or midline shift. Mild brain atrophy. Several sclerotic lesions are identified within the vertebral bodies of C4-C5 C7-T1 and T2 suspicious for metastatic disease. Tiny superior endplate compression deformity at T1. Tiny frontal skin/subcutaneous thickness density perhaps suggesting site of superficial contusion. 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 The interpreting radiologist is fully responsible for the content of the report.
== END 2021-09-07 01:16 | disposition home or self-care (01) ==
LOC: ER 20:51
PROC: 0JQ10ZZ Repair Face Subcutaneous Tissue and Fascia, Open Approach (ICD-10-PCS; principal; 2021-09-07)
DX: S01.81XA Laceration without foreign body of other part of head, initial encounter (principal); R53.1 Weakness; F03.90 Unspecified dementia, unspecified severity, without behavioral disturbance, psychotic disturbance, mood disturbance, and anxiety; C25.9 Malignant neoplasm of pancreas, unspecified; W06.XXXA Fall from bed, initial encounter; Z23 Encounter for immunization
CPT/HCPCS: 70450; 72125; 90471; 90714; 99285